=== PATIENT | male | born 1975 | race Caucasian/White ===

== ENCOUNTER 2019-07-18 10:45 | Inpatient (IN) | payer MEDICAID ==
[~2019-07-18] VITALS: Ht 177.8 cm; Wt 132.0 kg
[2019-07-18 12:31] LABS: BASOPHILS % (AUTO) 0.5 % (0-1); EOSINOPHILS # (AUTO) 0.1 X10'3 (0-0.9); EOSINOPHILS % (AUTO) 1.2 % (0-6); HEMATOCRIT 38.5 % (42.0-52.0); HEMOGLOBIN 13.1 g/dl (14.0-17.9); LYMPHOCYTES # (AUTO) 1.3 X10'3 (1.1-4.8); LYMPHOCYTES % (AUTO) 13.5 % (21-51); MEAN CORPUSCULAR VOLUME 88.2 FL (78-98); MEAN PLATELET VOLUME 8.3 FL (7.4-10.4); MONOCYTES # (AUTO) 0.6 X10'3 (0-0.9); MONOCYTES % (AUTO) 6.2 % (2-12); NEUTROPHILS # (AUTO) 7.8 X10'3 (1.8-7.7); NEUTROPHILS % (AUTO) 78.6 % (42-75); PLATELET COUNT 262 X10'3 (140-440); RED BLOOD COUNT 4.36 X10'6 (4.70-6.10); RED CELL DISTRIBUTION WIDTH 16.4 % (11.5-14.5); WHITE BLOOD COUNT 9.9 X10'3 (4.5-11.0)
[2019-07-18 12:48] LABS: ALANINE AMINOTRANSFERASE 27 U/L (12-78); ALBUMIN 3.5 G/DL (3.4-5.0); ALBUMIN/GLOBULIN RATIO 0.9 (1.1-1.5); ALKALINE PHOSPHATASE 92 IU/L (46-116); ANION GAP 10 (8-16); ASPARTATE AMINO TRANSFERASE 20 U/L (10-37); BILIRUBIN,TOTAL 0.6 MG/DL (0.1-1.0); BLOOD UREA NITROGEN 27 MG/DL (7-18); BUN/CREATININE RATIO 19.6 (5.4-32.0); CHLORIDE 104 MMOL/L (99-107); CREATININE 1.38 MG/DL (0.60-1.10); GLUCOSE 112 MG/DL (70-104); SODIUM 140 MMOL/L (135-145); TOTAL CARBON DIOXIDE 26.5 MMOL/L (24-32); TOTAL PROTEIN 7.5 G/DL (6.4-8.2); eGFR 56 ML/MIN
[2019-07-18] MEDS ORDERED: furosemide 10 MG/1 ML 10ml inj IV ONE (13:05)
[2019-07-18] MEDS ORDERED: nitroGLYCERIN-Tridil 50MG/D5W 250 ML IV SCH ×3 (13:05→22:55)
[2019-07-18] MEDS ORDERED: lisinopril 10 MG tablet PO ONE (13:05)
[2019-07-18] MEDS ORDERED: METO50TA7 PO (14:09)
[2019-07-18] MEDS ORDERED: SPIR25TA5 PO (14:09)
[2019-07-18] MEDS ORDERED: LISI-600 PO (14:09)
[2019-07-18] MEDS ORDERED: ASPI-611 PO (14:09)
[2019-07-18] MEDS ORDERED: AMLO10TA PO (14:09)
[2019-07-18] MEDS ORDERED: ATOR40TA PO (14:09)
[2019-07-18] MEDS ORDERED: FURO-150 PO (14:09)
[2019-07-18] MEDS ORDERED: ondansetron/PF 4mg/2ml inj IV PRN (14:10)
[2019-07-18] MEDS ORDERED: potassium CL 10mEq/100ml bag 100 ML IV PRN ×2 (14:10)
[2019-07-18] MEDS ORDERED: magnesium 4gm in 100ml NS 100 ML IV PRN (14:10)
[2019-07-18] MEDS ORDERED: magnesium 2GM in 50ml NS 50 ML IV PRN (14:10)
[2019-07-18] MEDS ORDERED: magnesium Cl slow-release 64mg tablet PO PRN (14:10)
[2019-07-18] MEDS ORDERED: potassium Cl 20 mEq SR tablet PO PRN (14:10)
[2019-07-18] MEDS ORDERED: LORazepam 2 mg/ml vial IV PRN (14:10)
[2019-07-18] MEDS ORDERED: acetaminophen 325mg tablet PO PRN ×2 (14:10)
--- NOTE | 2019-07-18 15:47 | NUR ---
at this time pt urine output: 2.3 Liters
--- NOTE | 2019-07-18 17:43 | NUR ---
relieving RN for lunch, pt is resting quietly on gurney, aware he is waiting for bed assignment and dinner has been ordered, botany laboratory assistant at bedside, pt is talking full sentences, no resp distress, nitro gtt infusing at 75mcg/min.
[2019-07-18 17:58] LABS: URINE AMPHETAMINE SCREEN POSITIVE (Neg); URINE BARBITUATE SCREEN NEGATIVE (Neg); URINE BENZODIAZEPINES SCREEN NEGATIVE (Neg); URINE CANNABINOID SCREEN NEGATIVE (Neg); URINE COCAINE SCREEN NEGATIVE (Neg); URINE METHADONE SCREEN NEGATIVE (Neg); URINE OPIATE SCREEN NEGATIVE (Neg); URINE PHENCYCLIDINE SCREEN NEGATIVE (Neg)
[2019-07-18] MEDS: K and/or MAG REPLACEMENT MC SCH (20:00)
[2019-07-18] MEDS: spironolactone 25 MG tablet PO SCH (20:00)
[2019-07-18] MEDS: morphine 2 MG/ML inj. syringe IV PRN (20:24)
[2019-07-18] MEDS: furosemide 10 MG/1 ML 10ml inj IV SCH (20:26)
[2019-07-18] MEDS: docusate sod 100mg capsule PO SCH (20:30)
[2019-07-18] MEDS: lisinopril 20mg tablet PO SCH (20:30)
[2019-07-18] MEDS: heparin, porcine 5000 units/ml vial SQ SCH (20:33)
[2019-07-18] MEDS ORDERED: temazepam 15mg capsule PO PRN (21:00)
[2019-07-18] MEDS: albuterol 2.5 MG/3 ML nebule NEB SCH (21:10)
[2019-07-18] MEDS ORDERED: amLODIPine 5mg tablet PO ONE (22:35)
[2019-07-18] MEDS: nitroGLYCERIN-Tridil 50MG/D5W 250 ML IV SCH (23:02)
[2019-07-19] MEDS ORDERED: metoprolol tartrate 1mg/ml inj IV ONE (00:10)
[2019-07-19] MEDS: metoprolol tartrate 25mg tablet PO ONE ×2 (00:15→00:18)
[2019-07-19] MEDS: HYDROcodone/acetaminophen 5mg/325mg tablet PO PRN ×2 (00:31→07:28)
[2019-07-19] MEDS: metoprolol tartrate 50mg tablet PO ONE ×2 (00:53→01:20)
[2019-07-19] MEDS: LORazepam 0.5 MG tablet PO PRN ×2 (01:18→18:04)
[2019-07-19] MEDS: albuterol 2.5 MG/3 ML nebule NEB SCH ×4 (02:30→20:01)
--- NOTE | 2019-07-19 03:18 | NUR ---
PT TRANSFERED TO HOSPITAL BED FOR COMFORT. PT STATED NORCO DECREASED HEADACHE PAIN, AND ATIVAN DECREASED HIS ANXIETY.
--- NOTE | 2019-07-19 05:00 | NUR ---
Patient in room ED 9. I have received report from Colleen CUELLAR and had the opportunity to ask questions and assume patient care.
[2019-07-19 05:32] VITALS: BP 134/96
--- NOTE | 2019-07-19 06:20 | NUR ---
Patient in room PCU 3020N. I have received report from Izaiah CUELLAR and had the opportunity to ask questions and assume patient care.
[2019-07-19 06:33] LABS: BASOPHILS % (AUTO) 0.4 % (0-1); EOSINOPHILS # (AUTO) 0.2 X10'3 (0-0.9); EOSINOPHILS % (AUTO) 2.2 % (0-6); HEMATOCRIT 32.8 % (42.0-52.0); HEMOGLOBIN 11.4 g/dl (14.0-17.9); LYMPHOCYTES # (AUTO) 1.3 X10'3 (1.1-4.8); LYMPHOCYTES % (AUTO) 16.1 % (21-51); MEAN CORPUSCULAR HEMOGLOBIN 30.4 PG (27.0-31.0); MEAN CORPUSCULAR HGB CONC 34.7 g/dL (33.0-36.5); MEAN CORPUSCULAR VOLUME 87.6 FL (78-98); MEAN PLATELET VOLUME 8.5 FL (7.4-10.4); MONOCYTES # (AUTO) 0.7 X10'3 (0-0.9); MONOCYTES % (AUTO) 8.2 % (2-12); NEUTROPHILS % (AUTO) 73.1 % (42-75); PLATELET COUNT 226 X10'3 (140-440); RED BLOOD COUNT 3.74 X10'6 (4.70-6.10); RED CELL DISTRIBUTION WIDTH 16.5 % (11.5-14.5); WHITE BLOOD COUNT 8.3 X10'3 (4.5-11.0)
--- NOTE | 2019-07-19 06:33 | NUR ---
Problems reprioritized. Patient report given, questions answered & plan of care reviewed with Lyubov CUELLAR.
[2019-07-19 06:52] LABS: ALANINE AMINOTRANSFERASE 26 U/L (12-78); ALBUMIN 3.2 G/DL (3.4-5.0); ALBUMIN/GLOBULIN RATIO 0.9 (1.1-1.5); ALKALINE PHOSPHATASE 76 IU/L (46-116); ANION GAP 10 (8-16); ASPARTATE AMINO TRANSFERASE 18 U/L (10-37); BLOOD UREA NITROGEN 28 MG/DL (7-18); BUN/CREATININE RATIO 17.5 (5.4-32.0); CALCIUM 8.6 MG/DL (8.5-10.1); CHLORIDE 101 MMOL/L (99-107); CHOL/HDL RATIO 4.8 (0.00-4.99); CHOLESTEROL 135 MG/DL (0-200); GLUCOSE 99 MG/DL (70-104); HDL CHOLESTEROL 28 MG/DL (35-60); LDL CHOLESTEROL 95 MG/DL (50-100); MAGNESIUM 1.7 MG/DL (1.5-2.4); POTASSIUM 3.3 MMOL/L (3.5-5.1); SODIUM 138 MMOL/L (135-145); TOTAL CARBON DIOXIDE 27.3 MMOL/L (24-32); TOTAL PROTEIN 6.6 G/DL (6.4-8.2); TRIGLYCERIDES 140 MG/DL (20-135); eGFR 47 ML/MIN
[2019-07-19 07:00] VITALS: BP 130/91
[2019-07-19] MEDS: nitroGLYCERIN-Tridil 50MG/D5W 250 ML IV SCH (07:30)
[2019-07-19] MEDS: nicotine 14mg patch - 24hr TD SCH (08:15)
[2019-07-19] MEDS: lisinopril 20mg tablet PO SCH ×2 (08:16→20:06)
[2019-07-19] MEDS: potassium Cl 20 mEq SR tablet PO PRN ×3 (08:16→20:09)
[2019-07-19] MEDS: heparin, porcine 5000 units/ml vial SQ SCH ×2 (08:17→20:04)
[2019-07-19] MEDS: docusate sod 100mg capsule PO SCH ×2 (08:17→20:06)
[2019-07-19] MEDS: furosemide 10 MG/1 ML 10ml inj IV SCH ×2 (08:17→20:03)
[2019-07-19] MEDS: atorvastatin 20mg tablet PO SCH (08:17)
[2019-07-19] MEDS: metoprolol succinate 25mg (24-HOUR) SR. Tablet PO SCH (08:18)
[2019-07-19] MEDS: amLODIPine 5mg tablet PO SCH (08:18)
[2019-07-19] MEDS: spironolactone 25 MG tablet PO SCH ×2 (08:18→20:06)
[2019-07-19] MEDS: aspirin 81mg tablet.DR PO SCH (08:18)
[2019-07-19] MEDS: K and/or MAG REPLACEMENT MC SCH ×2 (08:18→20:10)
[2019-07-19 11:00] VITALS: BP 123/81
[2019-07-19] MEDS: morphine 2 MG/ML inj. syringe IV PRN (12:16)
--- NOTE | 2019-07-19 13:01 | NUR ---
Paged Dr Solares regarding Nitro gtt rate. PAGER ID: [phone] MESSAGE: Lyubov moffett [phone]. RE Precious Smith [id number]. Pt has been having constant headache -Nitro gtt still running at 30 mcg. BP's stable all day, last BP 123/81. Would you like a new order with decreased nitro rate or keep as is? Thank you! New orders from Dr Solares to D/C Nitro gtt
[2019-07-19 15:00] VITALS: BP 128/75
--- NOTE | 2019-07-19 18:30 | NUR ---
Patient in room PCU 3025. I have received report from Lyubov CUELLAR and had the opportunity to ask questions and assume patient care.
--- NOTE | 2019-07-19 18:33 | NUR ---
Problems reprioritized. Patient report given, questions answered & plan of care reviewed with Izaiah CUELLAR. Pt stable at time of shift change
--- NOTE | 2019-07-19 18:45 | NUR ---
Pt sitting on edge of bed with visitor at bedside, in no apparent distress. Pt alert and oriented, on room air, lungs clear, bowel sounds present, 20g IV SL in right AC. Plan of care reviewed and questions answered, will monitor pt and provide intervention according to physician orders and protocol. Addendum: 07/20/19 at 0036 by Nader Person RN Pt resting in bed
[2019-07-19 19:00] VITALS: BP 157/99
[2019-07-19 22:33] VITALS: BP 153/104
[2019-07-20] MEDS: albuterol 2.5 MG/3 ML nebule NEB SCH ×2 (02:03→08:31)
--- NOTE | 2019-07-20 02:15 | NUR ---
Notified Dr. Jenkins pt's BP is 180/[address] pt back on nitroglycerin gtt from Dr. Jenkins
[2019-07-20] MEDS ORDERED: nitroGLYCERIN-Tridil 50MG/D5W 250 ML IV PRN (02:25)
[2019-07-20 03:00] VITALS: BP 160/105
[2019-07-20 05:41] LABS: BASOPHILS % (AUTO) 0.5 % (0-1); EOSINOPHILS # (AUTO) 0.2 X10'3 (0-0.9); EOSINOPHILS % (AUTO) 2.7 % (0-6); HEMATOCRIT 35.5 % (42.0-52.0); HEMOGLOBIN 12.1 g/dl (14.0-17.9); LYMPHOCYTES # (AUTO) 1.6 X10'3 (1.1-4.8); LYMPHOCYTES % (AUTO) 22.6 % (21-51); MEAN CORPUSCULAR HEMOGLOBIN 30.1 PG (27.0-31.0); MEAN CORPUSCULAR HGB CONC 34.1 g/dL (33.0-36.5); MEAN CORPUSCULAR VOLUME 88.4 FL (78-98); MEAN PLATELET VOLUME 8.3 FL (7.4-10.4); MONOCYTES # (AUTO) 0.7 X10'3 (0-0.9); MONOCYTES % (AUTO) 9.9 % (2-12); NEUTROPHILS # (AUTO) 4.6 X10'3 (1.8-7.7); NEUTROPHILS % (AUTO) 64.3 % (42-75); PLATELET COUNT 226 X10'3 (140-440); RED BLOOD COUNT 4.02 X10'6 (4.70-6.10); RED CELL DISTRIBUTION WIDTH 16.4 % (11.5-14.5); WHITE BLOOD COUNT 7.1 X10'3 (4.5-11.0)
[2019-07-20 05:48] LABS: ALANINE AMINOTRANSFERASE 24 U/L (12-78); ALBUMIN 3.4 G/DL (3.4-5.0); ALBUMIN/GLOBULIN RATIO 0.9 (1.1-1.5); ALKALINE PHOSPHATASE 78 IU/L (46-116); ANION GAP 7 (8-16); ASPARTATE AMINO TRANSFERASE 15 U/L (10-37); BILIRUBIN,TOTAL 0.7 MG/DL (0.1-1.0); BLOOD UREA NITROGEN 26 MG/DL (7-18); BUN/CREATININE RATIO 17.1 (5.4-32.0); CALCIUM 8.8 MG/DL (8.5-10.1); CHLORIDE 103 MMOL/L (99-107); CREATININE 1.52 MG/DL (0.60-1.10); GLUCOSE 94 MG/DL (70-104); MAGNESIUM 1.9 MG/DL (1.5-2.4); POTASSIUM 3.5 MMOL/L (3.5-5.1); SODIUM 141 MMOL/L (135-145); TOTAL CARBON DIOXIDE 31.2 MMOL/L (24-32); TOTAL PROTEIN 7.1 G/DL (6.4-8.2); eGFR 50 ML/MIN
--- NOTE | 2019-07-20 06:24 | NUR ---
Problems reprioritized. Patient report given, questions answered & plan of care reviewed with Lyubov CUELLAR.
[2019-07-20 06:30] VITALS: BP 131/91
--- NOTE | 2019-07-20 06:31 | NUR ---
Patient in room PCU 3017B. I have received report from Izaiah CUELLAR and had the opportunity to ask questions and assume patient care.
[2019-07-20] MEDS: spironolactone 25 MG tablet PO SCH (07:25)
[2019-07-20] MEDS: docusate sod 100mg capsule PO SCH (07:25)
[2019-07-20] MEDS: aspirin 81mg tablet.DR PO SCH (07:25)
[2019-07-20 07:26] VITALS: BP_SYST 138
[2019-07-20] MEDS: atorvastatin 20mg tablet PO SCH (07:26)
[2019-07-20] MEDS: lisinopril 20mg tablet PO SCH (07:26)
[2019-07-20] MEDS: nicotine 14mg patch - 24hr TD SCH (07:26)
[2019-07-20] MEDS: amLODIPine 5mg tablet PO SCH (07:26)
[2019-07-20] MEDS: metoprolol succinate 25mg (24-HOUR) SR. Tablet PO SCH (07:26)
[2019-07-20] MEDS: heparin, porcine 5000 units/ml vial SQ SCH (07:27)
[2019-07-20] MEDS: furosemide 10 MG/1 ML 10ml inj IV SCH (07:27)
[2019-07-20] MEDS: K and/or MAG REPLACEMENT MC SCH (07:54)
[2019-07-20] MEDS ORDERED: FURO-150 PO (11:36)
[2019-07-20] MEDS ORDERED: ALBU8.5H8 INH (11:36)
--- NOTE | 2019-07-20 13:27 | NUR ---
Per MD, patient stable for discharge. Discharge packet completed and provided to patient, all questions answered. Called new prescriptions into [facility] in [place]. Pt has followup appt in July with Mina Marie DYNO TECHNICIAN. IV removed with catheter intact, patient disconnected from bedside mobile. Patient escorted from hospital via wheelchair accompanied by staff, and driven home by friend via private vehicle.
== END 2019-07-20 13:27 | disposition home or self-care (01) | DRG 194 ==
LOC: ER 10:46 → ED HOLD 14:10 → MED 3N 19:00 → PCU 3S 07-19 05:15
PROVIDERS: ADMIT Internal Medicine; ATTEND Family Medicine
DX: I13.0 Hypertensive heart and chronic kidney disease with heart failure and stage 1 through stage 4 chronic kidney disease, or unspecified chronic kidney disease (principal); I21.A1 Myocardial infarction type 2; N18.3 Chronic kidney disease, stage 3 (moderate); E66.9 Obesity, unspecified; I50.23 Acute on chronic systolic (congestive) heart failure; F10.10 Alcohol abuse, uncomplicated; F17.220 Nicotine dependence, chewing tobacco, uncomplicated; E87.6 Hypokalemia; F15.10 Other stimulant abuse, uncomplicated; F41.9 Anxiety disorder, unspecified; I25.10 Atherosclerotic heart disease of native coronary artery without angina pectoris; Z86.79 Personal history of other diseases of the circulatory system; Z91.14 Patient's other noncompliance with medication regimen; Z91.19 Patient's noncompliance with other medical treatment and regimen; Z68.41 Body mass index [BMI] 40.0-44.9, adult; Z71.6 Tobacco abuse counseling; Z71.51 Drug abuse counseling and surveillance of drug abuser
CPT/HCPCS: 36415; 71046; 80053; 80061; 80305; 83735; 84484; 85025; 87081; 93005; 93306; 94640; 94760; 96365; 96375; 97116; 97161; 97530; 99285; G0378; J1644; J1940; J2060; J2270; J3490

== ENCOUNTER 2021-06-05 07:46 | Inpatient (IN) | payer MEDICAID ==
[~2021-06-05] VITALS: Ht 175.3 cm; Wt 152.1 kg
[~2021-06-05 07:46] MED LIST: ALBU8.5H17 INH; AMLO10TA PO; ASPI-611 PO; ATOR40TA PO; LISI20TA28 PO; METO50TA7 PO; SPIR25TA5 PO
[2021-06-05] MEDS ORDERED: diltiazem 5mg/ml 5ml inj. IV ONE (08:35)
[2021-06-05] MEDS ORDERED: aspirin 81mg tab.chew PO ONE (08:35)
[2021-06-05] MEDS ORDERED: diltiazem-NS 100mg/100ml 100 ML IV ONE (08:35)
[2021-06-05 08:57] LABS: BASOPHILS % (AUTO) 0.4 % (0-1); EOSINOPHILS # (AUTO) 0.1 X10'3 (0-0.9); EOSINOPHILS % (AUTO) 0.9 % (0-6); HEMATOCRIT 34.2 % (42.0-52.0); HEMOGLOBIN 11.6 g/dl (14.0-17.9); LYMPHOCYTES # (AUTO) 1.3 X10'3 (1.1-4.8); LYMPHOCYTES % (AUTO) 11.7 % (21-51); MEAN CORPUSCULAR HEMOGLOBIN 29.9 PG (27.0-31.0); MEAN PLATELET VOLUME 8.5 FL (7.4-10.4); MONOCYTES # (AUTO) 0.8 X10'3 (0-0.9); MONOCYTES % (AUTO) 7.4 % (2-12); NEUTROPHILS # (AUTO) 8.7 X10'3 (1.8-7.7); NEUTROPHILS % (AUTO) 79.6 % (42-75); PLATELET COUNT 349 X10'3 (140-440); RED BLOOD COUNT 3.88 X10'6 (4.70-6.10); RED CELL DISTRIBUTION WIDTH 14.6 % (11.5-14.5); WHITE BLOOD COUNT 10.9 X10'3 (4.5-11.0)
[2021-06-05 09:06] LABS: D-DIMER 1.39 MG/L FEU (0-0.50)
[2021-06-05 09:07] LABS: ALANINE AMINOTRANSFERASE 34 U/L (12-78); ALBUMIN 3.4 G/DL (3.4-5.0); ALBUMIN/GLOBULIN RATIO 0.8 (1.1-1.5); ALKALINE PHOSPHATASE 42 IU/L (46-116); ANION GAP 14 (8-16); ASPARTATE AMINO TRANSFERASE 26 U/L (10-37); BILIRUBIN,TOTAL 0.3 MG/DL (0.1-1.0); BLOOD UREA NITROGEN 43 MG/DL (7-18); BUN/CREATININE RATIO 21.3 (5.4-32.0); CALCIUM 8.8 MG/DL (8.5-10.1); CHLORIDE 105 MMOL/L (99-107); CREATININE 2.02 MG/DL (0.60-1.10); GLUCOSE 137 MG/DL (70-104); POTASSIUM 4.1 MMOL/L (3.5-5.1); SODIUM 140 MMOL/L (135-145); TOTAL CARBON DIOXIDE 21.4 MMOL/L (24-32); TOTAL PROTEIN 7.6 G/DL (6.4-8.2); eGFR 36 ML/MIN
[2021-06-05 09:15] LABS: MAGNESIUM 2.1 MG/DL (1.5-2.4)
[2021-06-05] MEDS ORDERED: furosemide 10 MG/1 ML 10ml inj IV ONE (09:55)
[2021-06-05] MEDS ORDERED: morphine 4 MG/ML inj SYRINge IV ONE (11:10)
[2021-06-05] MEDS ORDERED: ondansetron/PF 4mg/2ml inj IV PRN (11:20)
[2021-06-05] MEDS ORDERED: acetaminophen 325mg tablet PO PRN ×2 (11:20)
[2021-06-05] MEDS ORDERED: magnesium hydroxide 30ml (MOM) UD suspension PO PRN (11:20)
[2021-06-05] MEDS ORDERED: mag hydrox/Alum hydrox/simeth 30ml oral suspension PO PRN (11:20)
[2021-06-05] MEDS ORDERED: LISI5TAB22 PO (11:30)
[2021-06-05] MEDS ORDERED: ALLO100T PO (11:30)
[2021-06-05] MEDS ORDERED: METO-395 PO (11:30)
[2021-06-05] MEDS ORDERED: FURO40TA4 PO (11:30)
[2021-06-05] MEDS ORDERED: ASPI-1397 PO (11:30)
[2021-06-05] MEDS ORDERED: ERGO500054 PO (11:30)
[2021-06-05] MEDS ORDERED: FENO145T25 PO (11:30)
[2021-06-05] MEDS ORDERED: NIFE-34 PO (11:30)
[2021-06-05] MEDS ORDERED: APIX5TAB3 PO (11:30)
[2021-06-05 11:51] LABS: HEMOGLOBIN A1C 6.5 % (4.5-6.2)
--- NOTE | 2021-06-05 13:00 | NUR ---
DR PALM PAGED FOR MEDICATION CLARIFICATION.
--- NOTE | 2021-06-05 15:00 | NUR ---
DR PALM REPGED FOR MEDICATION CLARIFICTION, NO RETURN CALL
[2021-06-05] MEDS: morphine 2 MG/ML inj. syringe IV PRN ×3 (16:23→23:44)
--- NOTE | 2021-06-05 16:30 | NUR ---
DR PALM REPAGED FOR MED CLARIFICATION, NO RETURN CALL
--- NOTE | 2021-06-05 17:30 | NUR ---
DR PALM PAGED FOR MED RECONCILIATION COMPLETION. NO RETURN CALL
[2021-06-05] MEDS: docusate sod 100mg capsule PO SCH (20:30)
[2021-06-05] MEDS: apixaban 5mg tablet PO SCH (20:30)
[2021-06-05] MEDS: furosemide 40mg/4ml inj IV SCH (20:30)
--- NOTE | 2021-06-05 20:52 | NUR ---
DR SHEPHERD PG'ED RE CONTINUED TACHYCARDIA
[2021-06-05] MEDS ORDERED: digoxin 250mcg/ml 2ml ampule IV ONE (21:15)
[2021-06-05 22:00] VITALS: BP 167/109
[2021-06-06] VITALS (7 sets, daily range): BP systolic 116–177; BP diastolic 41–117
[2021-06-06] MEDS: morphine 2 MG/ML inj. syringe IV PRN ×3 (03:54→21:00)
--- NOTE | 2021-06-06 06:26 | NUR ---
Patient in room U 3018. I have received report from POLO CASAS traveler and had the opportunity to ask questions and assume patient care.
--- NOTE | 2021-06-06 06:26 | NUR ---
Patient in room PCU 3018. I have received report from Brooke RN Traveler PCU and had the opportunity to ask questions and assume patient care.
[2021-06-06 06:54] LABS: BASOPHILS # (AUTO) 0.1 X10'3 (0-0.2); BASOPHILS % (AUTO) 0.7 % (0-1); EOSINOPHILS # (AUTO) 0.2 X10'3 (0-0.9); EOSINOPHILS % (AUTO) 2.9 % (0-6); HEMATOCRIT 31.7 % (42.0-52.0); HEMOGLOBIN 10.9 g/dl (14.0-17.9); LYMPHOCYTES # (AUTO) 1.3 X10'3 (1.1-4.8); LYMPHOCYTES % (AUTO) 16.3 % (21-51); MEAN CORPUSCULAR HEMOGLOBIN 30.2 PG (27.0-31.0); MEAN CORPUSCULAR HGB CONC 34.5 g/dL (33.0-36.5); MEAN CORPUSCULAR VOLUME 87.6 FL (78-98); MEAN PLATELET VOLUME 8.1 FL (7.4-10.4); MONOCYTES # (AUTO) 0.5 X10'3 (0-0.9); MONOCYTES % (AUTO) 6.8 % (2-12); NEUTROPHILS # (AUTO) 5.6 X10'3 (1.8-7.7); NEUTROPHILS % (AUTO) 73.3 % (42-75); PLATELET COUNT 295 X10'3 (140-440); RED BLOOD COUNT 3.62 X10'6 (4.70-6.10); RED CELL DISTRIBUTION WIDTH 14.3 % (11.5-14.5); WHITE BLOOD COUNT 7.7 X10'3 (4.5-11.0)
--- NOTE | 2021-06-06 07:44 | NUR ---
PAGER ID: [phone] MESSAGE: Karan Smith#[phone]- Good morning, pt's BP this am HR108, RR22, 95% RA, 177/117. Hm meds have not been reconcile, can we get anti-HTN meds on board plz. Thank you. Tamar Chase U
[2021-06-06] MEDS ORDERED: albuterol 2.5 MG/3 ML nebule NEB PRN (07:50)
[2021-06-06 07:57] LABS: ALBUMIN 3.2 G/DL (3.4-5.0); ANION GAP 12 (8-16); BLOOD UREA NITROGEN 48 MG/DL (7-18); BUN/CREATININE RATIO 20.5 (5.4-32.0); CALCIUM 8.5 MG/DL (8.5-10.1); CHLORIDE 103 MMOL/L (99-107); CREATININE 2.34 MG/DL (0.60-1.10); GLUCOSE 124 MG/DL (70-104); POTASSIUM 3.5 MMOL/L (3.5-5.1); SODIUM 142 MMOL/L (135-145); TOTAL CARBON DIOXIDE 27.5 MMOL/L (24-32); eGFR 30 ML/MIN
[2021-06-06] MEDS: furosemide 40mg/4ml inj IV SCH ×2 (07:59→19:04)
[2021-06-06] MEDS: aspirin 81mg, enteric-coated 1 TAB TABLET.DR PO SCH (07:59)
[2021-06-06] MEDS: apixaban 5mg tablet PO SCH ×2 (07:59→19:05)
[2021-06-06] MEDS: docusate sod 100mg capsule PO SCH ×2 (07:59→19:05)
[2021-06-06] MEDS ORDERED: apixaban 5mg tablet PO SCH (08:00)
[2021-06-06] MEDS: fenofibrate 145mg tablet PO SCH (08:00)
[2021-06-06] MEDS: metoprolol succinate 25mg (24-HOUR) SR. Tablet PO SCH ×2 (08:00→19:06)
[2021-06-06] MEDS: lisinopril 5mg tablet PO SCH (08:01)
[2021-06-06] MEDS: allopurinol 100mg tablet PO SCH (08:01)
[2021-06-06] MEDS: HYDROcodone/acetaminophen 5mg/325mg tablet PO PRN ×2 (11:34→19:04)
--- NOTE | 2021-06-06 12:35 | NUR ---
Student documentation: I have reviewed and agree with all interventions, assessments performed and documented by Flori Martinez [employer] student..
--- NOTE | 2021-06-06 18:31 | NUR ---
Problems reprioritized. Patient report given, questions answered & plan of care reviewed with AUGUSTO RN.
--- NOTE | 2021-06-06 18:31 | NUR ---
Problems reprioritized. Patient report given, questions answered & plan of care reviewed with Brooke RN Traveler PCU.
[2021-06-07] MEDS ORDERED: temazepam 15mg capsule PO ONE (00:10)
[2021-06-07 02:00] VITALS: BP 143/90
[2021-06-07] MEDS: morphine 2 MG/ML inj. syringe IV PRN ×4 (05:53→23:14)
--- NOTE | 2021-06-07 06:42 | NUR ---
Patient in room PCU 3018. I have received report from POLO Cox and had the opportunity to ask questions and assume patient care.
[2021-06-07 06:48] LABS: BASOPHILS # (AUTO) 0.1 X10'3 (0-0.2); BASOPHILS % (AUTO) 0.9 % (0-1); EOSINOPHILS # (AUTO) 0.4 X10'3 (0-0.9); EOSINOPHILS % (AUTO) 4.9 % (0-6); HEMATOCRIT 31.7 % (42.0-52.0); HEMOGLOBIN 10.8 g/dl (14.0-17.9); LYMPHOCYTES # (AUTO) 1.2 X10'3 (1.1-4.8); LYMPHOCYTES % (AUTO) 16.1 % (21-51); MEAN CORPUSCULAR HEMOGLOBIN 29.9 PG (27.0-31.0); MEAN CORPUSCULAR HGB CONC 34.1 g/dL (33.0-36.5); MEAN CORPUSCULAR VOLUME 87.8 FL (78-98); MONOCYTES # (AUTO) 0.6 X10'3 (0-0.9); MONOCYTES % (AUTO) 8.2 % (2-12); NEUTROPHILS # (AUTO) 5.4 X10'3 (1.8-7.7); NEUTROPHILS % (AUTO) 69.9 % (42-75); PLATELET COUNT 292 X10'3 (140-440); RED BLOOD COUNT 3.61 X10'6 (4.70-6.10); WHITE BLOOD COUNT 7.7 X10'3 (4.5-11.0)
[2021-06-07 07:00] VITALS: BP 143/92
[2021-06-07 07:36] LABS: ANION GAP 9 (8-16); BLOOD UREA NITROGEN 49 MG/DL (7-18); BUN/CREATININE RATIO 23.7 (5.4-32.0); CALCIUM 8.3 MG/DL (8.5-10.1); CHLORIDE 102 MMOL/L (99-107); CREATININE 2.07 MG/DL (0.60-1.10); GLUCOSE 112 MG/DL (70-104); POTASSIUM 3.5 MMOL/L (3.5-5.1); SODIUM 139 MMOL/L (135-145); TOTAL CARBON DIOXIDE 28.5 MMOL/L (24-32); eGFR 35 ML/MIN
[2021-06-07] MEDS: docusate sod 100mg capsule PO SCH ×2 (08:36→19:56)
[2021-06-07] MEDS: metoprolol succinate 25mg (24-HOUR) SR. Tablet PO SCH ×2 (08:36→19:55)
[2021-06-07] MEDS: apixaban 5mg tablet PO SCH ×2 (08:36→19:55)
[2021-06-07] MEDS: furosemide 40mg/4ml inj IV SCH ×2 (08:36→19:55)
[2021-06-07] MEDS: fenofibrate 145mg tablet PO SCH (08:36)
[2021-06-07] MEDS: allopurinol 100mg tablet PO SCH (08:37)
[2021-06-07] MEDS: aspirin 81mg, enteric-coated 1 TAB TABLET.DR PO SCH (08:37)
[2021-06-07] MEDS: lisinopril 5mg tablet PO SCH (08:37)
[2021-06-07 11:00] VITALS: BP 158/88
[2021-06-07 15:00] VITALS: BP 138/92
[2021-06-07 18:00] VITALS: BP 157/93
--- NOTE | 2021-06-07 18:47 | NUR ---
Problems reprioritized. Patient report given, questions answered & plan of care reviewed with POLO Sanches. Pt sitting up in bed resting comfortably. All pt needs met at this time.
[2021-06-07 22:00] VITALS: BP 159/105
--- NOTE | 2021-06-07 22:21 | NUR ---
[phone] MESSAGE: re: [id number] Karan Smith - requesting sleep aid. Verónica [phone]
[2021-06-08 02:00] VITALS: BP 128/74
[2021-06-08] MEDS: morphine 2 MG/ML inj. syringe IV PRN ×2 (05:52→10:41)
[2021-06-08 06:10] LABS: BASOPHILS % (AUTO) 0.6 % (0-1); EOSINOPHILS # (AUTO) 0.3 X10'3 (0-0.9); EOSINOPHILS % (AUTO) 4.3 % (0-6); HEMATOCRIT 33.8 % (42.0-52.0); HEMOGLOBIN 11.2 g/dl (14.0-17.9); LYMPHOCYTES # (AUTO) 1.1 X10'3 (1.1-4.8); LYMPHOCYTES % (AUTO) 14.5 % (21-51); MEAN CORPUSCULAR HEMOGLOBIN 29.2 PG (27.0-31.0); MEAN CORPUSCULAR HGB CONC 33.2 g/dL (33.0-36.5); MONOCYTES # (AUTO) 0.7 X10'3 (0-0.9); MONOCYTES % (AUTO) 8.6 % (2-12); NEUTROPHILS # (AUTO) 5.5 X10'3 (1.8-7.7); PLATELET COUNT 320 X10'3 (140-440); RED BLOOD COUNT 3.85 X10'6 (4.70-6.10); RED CELL DISTRIBUTION WIDTH 14.4 % (11.5-14.5); WHITE BLOOD COUNT 7.7 X10'3 (4.5-11.0)
--- NOTE | 2021-06-08 06:13 | NUR ---
Problems reprioritized. Patient report given, questions answered & plan of care reviewed with POLO Wilcox.
[2021-06-08 06:21] LABS: ALBUMIN 3.1 G/DL (3.4-5.0); ANION GAP 9 (8-16); BLOOD UREA NITROGEN 52 MG/DL (7-18); BUN/CREATININE RATIO 26.4 (5.4-32.0); CALCIUM 8.6 MG/DL (8.5-10.1); CHLORIDE 103 MMOL/L (99-107); CREATININE 1.97 MG/DL (0.60-1.10); GLUCOSE 112 MG/DL (70-104); POTASSIUM 3.7 MMOL/L (3.5-5.1); SODIUM 140 MMOL/L (135-145); eGFR 37 ML/MIN
--- NOTE | 2021-06-08 06:25 | NUR ---
Patient in room PCU 3018. I have received report from POLO Sanches and had the opportunity to ask questions and assume patient care.
[2021-06-08 07:24] VITALS: BP 151/94
[2021-06-08] MEDS: allopurinol 100mg tablet PO SCH (08:33)
[2021-06-08] MEDS: furosemide 40mg/4ml inj IV SCH (08:33)
[2021-06-08] MEDS: apixaban 5mg tablet PO SCH (08:33)
[2021-06-08] MEDS: lisinopril 5mg tablet PO SCH (08:33)
[2021-06-08] MEDS: metoprolol succinate 25mg (24-HOUR) SR. Tablet PO SCH (08:33)
[2021-06-08] MEDS: fenofibrate 145mg tablet PO SCH (08:33)
[2021-06-08] MEDS: aspirin 81mg, enteric-coated 1 TAB TABLET.DR PO SCH (08:33)
[2021-06-08] MEDS: docusate sod 100mg capsule PO SCH (08:34)
--- NOTE | 2021-06-08 10:02 | NUR ---
Initial: Pt presented with c/o SOB and admit for CHF and A.fib with RVR. Currently on a heart healthy diet and eating well with 100% PO intake throughout LOS. D/w dietary to send double protein with meals for satiety. LBM 06/05, receiving routine bowel care and received first dose of PRN MoM 06/07. Will continue to follow and monitor need for further nutrition intervention. Recommendations: 1) Continue heart healthy diet 2) Double eggs WB, double meat BIDLD for satiety 3) Routine bowel care 4) Weekly scaled weights Addendum: 06/08/21 at [address] Amended: Links added.
[2021-06-08 11:00] VITALS: BP 135/88
--- NOTE | 2021-06-08 13:00 | NUR ---
Patient stable for discharge per md orders. All instructions were given, questions were answered appropriately. All belongings were collected and sent with pt. PIV discontinued, cannula intact. Tele discontinued, television news producer notified. Informed pt to take medications as prescribed, and follow with with PCP within one week. Encouraged pt to follow heart healthy diet. Wheeled pt to lobby and assisted into personal vehicle with son.
== END 2021-06-08 13:00 | disposition home or self-care (01) | DRG 201 ==
LOC: ER 07:47 → ED HOLD 11:23 → PCU 3S 22:10
PROVIDERS: ADMIT Internal Medicine; ATTEND Family Medicine
PROC: CB121ZZ Planar Nuclear Medicine Imaging of Lungs and Bronchi using Technetium 99m (Tc-99m) (ICD-10-PCS; principal; 2021-06-08)
DX: I48.0 Paroxysmal atrial fibrillation (principal); N17.0 Acute kidney failure with tubular necrosis; I50.23 Acute on chronic systolic (congestive) heart failure; I13.0 Hypertensive heart and chronic kidney disease with heart failure and stage 1 through stage 4 chronic kidney disease, or unspecified chronic kidney disease; D64.9 Anemia, unspecified; E66.01 Morbid (severe) obesity due to excess calories; E78.1 Pure hyperglyceridemia; Z60.2 Problems related to living alone; G47.33 Obstructive sleep apnea (adult) (pediatric); E78.5 Hyperlipidemia, unspecified; I25.10 Atherosclerotic heart disease of native coronary artery without angina pectoris; N18.9 Chronic kidney disease, unspecified; Z68.42 Body mass index [BMI] 45.0-49.9, adult; Z82.49 Family history of ischemic heart disease and other diseases of the circulatory system; I25.2 Old myocardial infarction; Z87.891 Personal history of nicotine dependence; Z79.899 Other long term (current) drug therapy; Z71.3 Dietary counseling and surveillance
CPT/HCPCS: 36415; 71045; 78582; 80048; 80053; 83036; 83735; 83880; 84484; 85025; 85379; 87081; 93005; 93306; 96374; 96375; 99291; A9539; A9540; G0378; J1160; J1940; J2270; J3490

== ENCOUNTER 2021-07-31 07:54 | Inpatient (IN) | payer MEDICAID ==
[~2021-07-31] VITALS: Ht 175.3 cm; Wt 163.9 kg
[~2021-07-31 07:54] MED LIST changes: -ALBU8.5H17 INH; +ALLO100T PO; -AMLO10TA PO; +APIX5TAB3 PO; +ASPI-1397 PO; -ASPI-611 PO; -ATOR40TA PO; +ERGO500054 PO; +FENO145T25 PO; +FURO40TA4 PO; -LISI20TA28 PO; +LISI5TAB22 PO; +METO-395 PO; -METO50TA7 PO; -SPIR25TA5 PO
[2021-07-31 08:25] LABS: BASOPHILS # (AUTO) 0.1 X10'3 (0-0.2); EOSINOPHILS # (AUTO) 0.1 X10'3 (0-0.9); EOSINOPHILS % (AUTO) 1.3 % (0-6); HEMATOCRIT 40.6 % (42.0-52.0); HEMOGLOBIN 13.3 g/dl (14.0-17.9); LYMPHOCYTES # (AUTO) 1.2 X10'3 (1.1-4.8); LYMPHOCYTES % (AUTO) 18.9 % (21-51); MEAN CORPUSCULAR HEMOGLOBIN 28.2 PG (27.0-31.0); MEAN CORPUSCULAR HGB CONC 32.7 g/dL (33.0-36.5); MEAN CORPUSCULAR VOLUME 86.2 FL (78-98); MEAN PLATELET VOLUME 7.6 FL (7.4-10.4); MONOCYTES # (AUTO) 0.3 X10'3 (0-0.9); MONOCYTES % (AUTO) 5.1 % (2-12); NEUTROPHILS # (AUTO) 4.6 X10'3 (1.8-7.7); NEUTROPHILS % (AUTO) 73.7 % (42-75); PLATELET COUNT 239 X10'3 (140-440); RED BLOOD COUNT 4.71 X10'6 (4.70-6.10); RED CELL DISTRIBUTION WIDTH 16.6 % (11.5-14.5); WHITE BLOOD COUNT 6.2 X10'3 (4.5-11.0)
[2021-07-31 08:48] LABS: ALANINE AMINOTRANSFERASE 28 U/L (12-78); ALBUMIN 3.4 G/DL (3.4-5.0); ALBUMIN/GLOBULIN RATIO 0.9 (1.1-1.5); ALKALINE PHOSPHATASE 47 IU/L (46-116); ANION GAP 11 (8-16); ASPARTATE AMINO TRANSFERASE 26 U/L (10-37); BILIRUBIN,TOTAL 0.3 MG/DL (0.1-1.0); BLOOD UREA NITROGEN 42 MG/DL (7-18); BUN/CREATININE RATIO 18.9 (5.4-32.0); CALCIUM 9.2 MG/DL (8.5-10.1); CHLORIDE 105 MMOL/L (99-107); CREATININE 2.22 MG/DL (0.60-1.10); GLUCOSE 174 MG/DL (70-104); POTASSIUM 4.7 MMOL/L (3.5-5.1); SODIUM 141 MMOL/L (135-145); TOTAL CARBON DIOXIDE 25.1 MMOL/L (24-32); TOTAL PROTEIN 7.4 G/DL (6.4-8.2); eGFR 32 ML/MIN
--- NOTE | 2021-07-31 09:06 | NUR ---
Pt. continues to wait for a treatment room. States having difficulty staying awake, feeling lightheaded and lethargic. HR 68-102, RR 24, O2 sats 95%, BP 120/75. Encouraged patient to try and slow down breathing. Charge nurse notified.
[2021-07-31] MEDS ORDERED: metoprolol tartrate 50mg tablet PO ONE ×2 (14:25→18:35)
[2021-07-31] MEDS ORDERED: LORazepam 1 MG tablet PO ONE ×2 (14:25→18:35)
[2021-07-31] MEDS ORDERED: metoprolol tartrate 1mg/ml inj IV ONE (14:25)
[2021-07-31] MEDS ORDERED: hyDRALAzine 10mg tablet PO ONE (18:35)
--- NOTE | 2021-07-31 19:08 | NUR ---
MEAL TRAY GIVEN TO PATIENT
[2021-07-31] MEDS ORDERED: LORazepam 2 mg/ml vial IV PRN (20:15)
[2021-07-31] MEDS ORDERED: ondansetron/PF 4mg/2ml inj IV PRN (20:15)
[2021-07-31] MEDS ORDERED: HYDROcodone/acetaminophen 5mg/325mg tablet PO PRN (20:15)
[2021-07-31] MEDS ORDERED: dextrose 50%-water 50ml dispensing syringe IV PRN (20:15)
[2021-07-31] MEDS ORDERED: magnesium 4gm in 100ml NS 100 ML IV PRN (20:15)
[2021-07-31] MEDS ORDERED: ipratropium/albuterol 3ml nebule NEB PRN (20:15)
[2021-07-31] MEDS ORDERED: acetaminophen 325mg tablet PO PRN ×2 (20:15)
[2021-07-31] MEDS ORDERED: magnesium hydroxide 30ml (MOM) UD suspension PO PRN (20:15)
[2021-07-31] MEDS ORDERED: potassium Cl 20 mEq SR tablet PO PRN ×2 (20:15)
[2021-07-31] MEDS ORDERED: mag hydrox/Alum hydrox/simeth 30ml oral suspension PO PRN (20:15)
[2021-07-31] MEDS ORDERED: albuterol 2.5 MG/3 ML nebule NEB PRN (20:15)
[2021-07-31] MEDS ORDERED: potassium CL 10mEq/100ml bag 100 ML IV PRN (20:15)
[2021-07-31] MEDS ORDERED: haloperidol 5mg tablet PO PRN (20:15)
[2021-07-31] MEDS ORDERED: magnesium 2GM in 50ml NS 50 ML IV PRN (20:15)
[2021-07-31] MEDS ORDERED: haloperidol lactate 5mg/ml inj IM PRN (20:15)
[2021-07-31] MEDS ORDERED: SPIR25TA5 PO (20:35)
[2021-07-31] MEDS ORDERED: LISI40TA13 PO (20:35)
[2021-07-31] MEDS ORDERED: AMIO200T61 PO (20:35)
[2021-07-31] MEDS ORDERED: METO200T49 PO (20:35)
[2021-07-31] MEDS ORDERED: HYDR-4069 PO (20:38)
--- NOTE | 2021-07-31 20:57 | NUR ---
Rico rios in ED - 07/31/21 at 2057 by ERASMO pt given and fed dinner tray by [employer] Rhi. pt given 2-3 bites of food and refused dinner tray.
[2021-07-31] MEDS: thiamine 100mg/ml 2ml inj. IV SCH (21:05)
[2021-08-01] MEDS: HYDROcodone/acetaminophen 10/325mg tab PO PRN ×3 (01:18→22:57)
--- NOTE | 2021-08-01 06:54 | NUR ---
patient received in bed asleep.We will monitor.
[2021-08-01 07:45] LABS: BASOPHILS # (AUTO) 0.1 X10'3 (0-0.2); BASOPHILS % (AUTO) 1.3 % (0-1); EOSINOPHILS # (AUTO) 0.1 X10'3 (0-0.9); EOSINOPHILS % (AUTO) 1.7 % (0-6); HEMATOCRIT 38.2 % (42.0-52.0); HEMOGLOBIN 12.6 g/dl (14.0-17.9); LYMPHOCYTES # (AUTO) 1.4 X10'3 (1.1-4.8); LYMPHOCYTES % (AUTO) 24.8 % (21-51); MEAN CORPUSCULAR HEMOGLOBIN 28.4 PG (27.0-31.0); MEAN CORPUSCULAR VOLUME 86.1 FL (78-98); MEAN PLATELET VOLUME 7.7 FL (7.4-10.4); MONOCYTES # (AUTO) 0.6 X10'3 (0-0.9); MONOCYTES % (AUTO) 10.1 % (2-12); NEUTROPHILS # (AUTO) 3.5 X10'3 (1.8-7.7); NEUTROPHILS % (AUTO) 62.1 % (42-75); PLATELET COUNT 201 X10'3 (140-440); RED BLOOD COUNT 4.44 X10'6 (4.70-6.10); WHITE BLOOD COUNT 5.6 X10'3 (4.5-11.0)
[2021-08-01] MEDS ORDERED: apixaban 5mg tablet PO SCH (08:00)
[2021-08-01] MEDS: folic acid 1mg tablet PO SCH (08:00)
[2021-08-01] MEDS: metoprolol succinate 25mg (24-HOUR) SR. Tablet PO SCH (08:00)
[2021-08-01] MEDS: fenofibrate 145mg tablet PO SCH (08:00)
[2021-08-01] MEDS: nicotine 21mg patch - 24 hr TD SCH (08:00)
[2021-08-01] MEDS: thiamine 100mg/ml 2ml inj. IV SCH ×3 (08:00→22:18)
[2021-08-01] MEDS: K and/or MAG REPLACEMENT MC SCH ×2 (08:00→20:00)
[2021-08-01] MEDS: aspirin 81mg, enteric-coated 1 TAB TABLET.DR PO SCH (08:00)
[2021-08-01] MEDS: apixaban 5mg tablet PO SCH ×2 (08:00→22:27)
[2021-08-01] MEDS: docusate sod 100mg capsule PO SCH ×2 (08:00→20:00)
[2021-08-01] MEDS: allopurinol 100mg tablet PO SCH (08:00)
[2021-08-01] MEDS ORDERED: lisinopril 20mg tablet PO SCH (08:00)
[2021-08-01] MEDS: amiodarone 200mg tablet PO SCH (08:00)
[2021-08-01] MEDS: furosemide 40mg/4ml inj IV SCH (08:00)
[2021-08-01] MEDS: spironolactone 25 MG tablet PO SCH ×2 (08:00→22:28)
[2021-08-01] MEDS: hyDRALAzine 10mg tablet PO SCH ×2 (08:00→22:26)
[2021-08-01 08:59] LABS: ALANINE AMINOTRANSFERASE 25 U/L (12-78); ALBUMIN 3.4 G/DL (3.4-5.0); ALBUMIN/GLOBULIN RATIO 0.9 (1.1-1.5); ALKALINE PHOSPHATASE 42 IU/L (46-116); ANION GAP 13 (8-16); ASPARTATE AMINO TRANSFERASE 28 U/L (10-37); BILIRUBIN,TOTAL 0.5 MG/DL (0.1-1.0); BLOOD UREA NITROGEN 46 MG/DL (7-18); BUN/CREATININE RATIO 18.9 (5.4-32.0); CALCIUM 8.8 MG/DL (8.5-10.1); CHLORIDE 103 MMOL/L (99-107); CREATININE 2.44 MG/DL (0.60-1.10); GLUCOSE 119 MG/DL (70-104); MAGNESIUM 1.8 MG/DL (1.5-2.4); PHOSPHORUS 3.3 MG/DL (2.3-4.5); POTASSIUM 4.5 MMOL/L (3.5-5.1); SODIUM 138 MMOL/L (135-145); TOTAL CARBON DIOXIDE 22.5 MMOL/L (24-32); TOTAL PROTEIN 7.2 G/DL (6.4-8.2); eGFR 29 ML/MIN
[2021-08-01] MEDS ORDERED: ondansetron 4mg rapidly disintigrating tab PO PRN (13:50)
--- NOTE | 2021-08-01 18:30 | NUR ---
Patient in room PCU 3015. I have received report from Collette ESTEBAN and had the opportunity to ask questions and assume patient care.
--- NOTE | 2021-08-01 19:05 | NUR ---
assisting RN with pt care, report called to Sarai CUELLAR
[2021-08-01 22:00] VITALS: BP 147/108
[2021-08-01] MEDS: diltiazem 30mg tablet PO SCH (22:19)
[2021-08-02 02:00] VITALS: BP 150/91
[2021-08-02] MEDS: diltiazem 30mg tablet PO SCH ×2 (02:47→08:57)
[2021-08-02] MEDS: HYDROcodone/acetaminophen 10/325mg tab PO PRN (05:53)
[2021-08-02 06:00] VITALS: BP 131/83
--- NOTE | 2021-08-02 06:30 | NUR ---
Patient in room PCU 3015. I have received report from Sarai CUELLAR and had the opportunity to ask questions and assume patient care.
[2021-08-02 07:01] LABS: BASOPHILS # (AUTO) 0.1 X10'3 (0-0.2); BASOPHILS % (AUTO) 1.1 % (0-1); EOSINOPHILS # (AUTO) 0.2 X10'3 (0-0.9); HEMATOCRIT 39.9 % (42.0-52.0); HEMOGLOBIN 13.1 g/dl (14.0-17.9); LYMPHOCYTES # (AUTO) 1.7 X10'3 (1.1-4.8); LYMPHOCYTES % (AUTO) 27.2 % (21-51); MEAN CORPUSCULAR HEMOGLOBIN 28.4 PG (27.0-31.0); MEAN CORPUSCULAR HGB CONC 32.9 g/dL (33.0-36.5); MEAN CORPUSCULAR VOLUME 86.2 FL (78-98); MEAN PLATELET VOLUME 7.9 FL (7.4-10.4); MONOCYTES # (AUTO) 0.5 X10'3 (0-0.9); MONOCYTES % (AUTO) 8.4 % (2-12); NEUTROPHILS # (AUTO) 3.6 X10'3 (1.8-7.7); NEUTROPHILS % (AUTO) 59.3 % (42-75); PLATELET COUNT 217 X10'3 (140-440); RED BLOOD COUNT 4.63 X10'6 (4.70-6.10); RED CELL DISTRIBUTION WIDTH 16.7 % (11.5-14.5); WHITE BLOOD COUNT 6.1 X10'3 (4.5-11.0)
[2021-08-02 07:26] LABS: ALANINE AMINOTRANSFERASE 28 U/L (12-78); ALBUMIN 3.6 G/DL (3.4-5.0); ALBUMIN/GLOBULIN RATIO 0.9 (1.1-1.5); ALKALINE PHOSPHATASE 46 IU/L (46-116); ANION GAP 12 (8-16); ASPARTATE AMINO TRANSFERASE 22 U/L (10-37); BILIRUBIN,TOTAL 0.4 MG/DL (0.1-1.0); BLOOD UREA NITROGEN 53 MG/DL (7-18); BUN/CREATININE RATIO 20.2 (5.4-32.0); CALCIUM 9.1 MG/DL (8.5-10.1); CHLORIDE 101 MMOL/L (99-107); CREATININE 2.63 MG/DL (0.60-1.10); GLUCOSE 112 MG/DL (70-104); MAGNESIUM 1.9 MG/DL (1.5-2.4); POTASSIUM 4.6 MMOL/L (3.5-5.1); SODIUM 136 MMOL/L (135-145); TOTAL CARBON DIOXIDE 22.8 MMOL/L (24-32); TOTAL PROTEIN 7.6 G/DL (6.4-8.2); eGFR 26 ML/MIN
[2021-08-02] MEDS: thiamine 100mg/ml 2ml inj. IV SCH (08:00)
[2021-08-02] MEDS: K and/or MAG REPLACEMENT MC SCH (08:00)
[2021-08-02] MEDS ORDERED: naltrexone 50mg tablet PO SCH (08:00)
[2021-08-02] MEDS: metoprolol succinate 25mg (24-HOUR) SR. Tablet PO SCH (08:56)
[2021-08-02] MEDS: hyDRALAzine 10mg tablet PO SCH (08:57)
[2021-08-02] MEDS: spironolactone 25 MG tablet PO SCH (08:58)
[2021-08-02] MEDS: aspirin 81mg, enteric-coated 1 TAB TABLET.DR PO SCH (08:59)
[2021-08-02] MEDS: apixaban 5mg tablet PO SCH (08:59)
[2021-08-02] MEDS: amiodarone 200mg tablet PO SCH (09:00)
[2021-08-02] MEDS: fenofibrate 145mg tablet PO SCH (09:00)
[2021-08-02] MEDS: folic acid 1mg tablet PO SCH (09:00)
[2021-08-02] MEDS: nicotine 21mg patch - 24 hr TD SCH (09:01)
[2021-08-02] MEDS: allopurinol 100mg tablet PO SCH (09:01)
[2021-08-02] MEDS: furosemide 40mg/4ml inj IV SCH (09:02)
[2021-08-02] MEDS: docusate sod 100mg capsule PO SCH (09:02)
[2021-08-02] MEDS ORDERED: DILT-88 PO (10:53)
[2021-08-02] MEDS ORDERED: NICO-687 TD (10:53)
[2021-08-02] MEDS ORDERED: NALT50TA PO (10:53)
[2021-08-02 11:00] VITALS: BP 115/69
--- NOTE | 2021-08-02 13:05 | NUR ---
Pt. received discharge instructions with no further questions; Pt. IV removed with catheter intact; Pt. tele cleaned and returned; Per Dr. Veliz pt is ready for discharge; Pt. left via wheelchair in private car. Leonor Click PCU
[2021-08-02] MEDS ORDERED: LORazepam 1 MG tablet PO PRN (20:15)
[2021-08-02] MEDS ORDERED: LORazepam 2 mg/ml vial IV PRN (20:15)
[2021-08-02] MEDS ORDERED: lisinopril 20mg tablet PO SCH (21:00)
[2021-08-04] MEDS ORDERED: thiamine 100mg tablet PO SCH (08:00)
[2021-08-04] MEDS ORDERED: LORazepam 2 mg/ml vial IV PRN (20:15)
[2021-08-04] MEDS ORDERED: LORazepam 1 MG tablet PO PRN (20:15)
== END 2021-08-02 13:05 | disposition home or self-care (01) | DRG 201 ==
LOC: ER 07:54 → ED HOLD 20:23 → PCU 3S 08-01 20:20
PROVIDERS: ADMIT Family Medicine; ATTEND Family Medicine
DX: I48.91 Unspecified atrial fibrillation (principal); I21.A1 Myocardial infarction type 2; N17.9 Acute kidney failure, unspecified; I13.0 Hypertensive heart and chronic kidney disease with heart failure and stage 1 through stage 4 chronic kidney disease, or unspecified chronic kidney disease; I50.22 Chronic systolic (congestive) heart failure; E78.5 Hyperlipidemia, unspecified; N18.30 Chronic kidney disease, stage 3 unspecified; Z60.2 Problems related to living alone; Z20.822 Contact with and (suspected) exposure to COVID-19; G47.33 Obstructive sleep apnea (adult) (pediatric); F10.10 Alcohol abuse, uncomplicated; F17.220 Nicotine dependence, chewing tobacco, uncomplicated; I25.10 Atherosclerotic heart disease of native coronary artery without angina pectoris; M54.9 Dorsalgia, unspecified; I25.2 Old myocardial infarction; Z82.49 Family history of ischemic heart disease and other diseases of the circulatory system; Z83.3 Family history of diabetes mellitus; Z79.899 Other long term (current) drug therapy; Z79.82 Long term (current) use of aspirin; Z71.6 Tobacco abuse counseling
CPT/HCPCS: 36415; 71045; 80053; 83735; 83880; 84100; 84145; 84484; 85025; 85610; 87081; 87635; 93005; 94760; 96374; 99285; C9803; G0378; J1940; J3411; J3490

== ENCOUNTER 2021-10-22 17:06 | Inpatient (IN) | payer MEDICAID ==
[~2021-10-22] VITALS: Ht 177.8 cm; Wt 159.0 kg
[~2021-10-22 17:06] MED LIST changes: +AMIO200T61 PO; +DILT-88 PO; +HYDR-4069 PO; +LISI40TA13 PO; -LISI5TAB22 PO; -METO-395 PO; +METO200T49 PO; +NALT50TA PO; +NICO-687 TD; +SPIR25TA5 PO
[2021-10-22 18:06] LABS: BASOPHILS # (AUTO) 0.1 X10'3 (0-0.2); BASOPHILS % (AUTO) 0.6 % (0-1); EOSINOPHILS % (AUTO) 0 % (0-6); HEMATOCRIT 39.5 % (42.0-52.0); HEMOGLOBIN 12.9 g/dl (14.0-17.9); LYMPHOCYTES % (AUTO) 8.5 % (21-51); MEAN CORPUSCULAR HEMOGLOBIN 29.1 PG (27.0-31.0); MEAN CORPUSCULAR HGB CONC 32.7 g/dL (33.0-36.5); MEAN PLATELET VOLUME 7.8 FL (7.4-10.4); MONOCYTES # (AUTO) 0.8 X10'3 (0-0.9); MONOCYTES % (AUTO) 6.8 % (2-12); NEUTROPHILS # (AUTO) 9.6 X10'3 (1.8-7.7); NEUTROPHILS % (AUTO) 84.1 % (42-75); PLATELET COUNT 377 X10'3 (140-440); RED BLOOD COUNT 4.44 X10'6 (4.70-6.10); RED CELL DISTRIBUTION WIDTH 16.9 % (11.5-14.5); WHITE BLOOD COUNT 11.4 X10'3 (4.5-11.0)
[2021-10-22 18:16] LABS: ALANINE AMINOTRANSFERASE 248 U/L (12-78); ALBUMIN 3.2 G/DL (3.4-5.0); ALBUMIN/GLOBULIN RATIO 0.8 (1.1-1.5); ALKALINE PHOSPHATASE 63 IU/L (46-116); ANION GAP 13 (8-16); ASPARTATE AMINO TRANSFERASE 406 U/L (10-37); BILIRUBIN,TOTAL 1.1 MG/DL (0.1-1.0); BLOOD UREA NITROGEN 43 MG/DL (7-18); BUN/CREATININE RATIO 19.5 (5.4-32.0); CHLORIDE 102 MMOL/L (99-107); GLUCOSE 189 MG/DL (70-104); SODIUM 141 MMOL/L (135-145); TOTAL CARBON DIOXIDE 26.3 MMOL/L (24-32); TOTAL PROTEIN 7.2 G/DL (6.4-8.2); eGFR 32 ML/MIN
[2021-10-22] MEDS ORDERED: furosemide 40mg/4ml inj IV ONE (21:25)
[2021-10-22] MEDS ORDERED: potassium Cl 20 mEq SR tablet PO PRN ×2 (23:10)
[2021-10-22] MEDS ORDERED: ondansetron/PF 4mg/2ml inj IV PRN (23:10)
[2021-10-22] MEDS ORDERED: ipratropium/albuterol 3ml nebule NEB PRN (23:10)
[2021-10-22] MEDS ORDERED: albuterol 2.5 MG/3 ML nebule NEB PRN (23:10)
[2021-10-22] MEDS ORDERED: magnesium 2GM in 50ml NS 50 ML IV PRN (23:10)
[2021-10-22] MEDS ORDERED: mag hydrox/Alum hydrox/simeth 30ml oral suspension PO PRN (23:10)
[2021-10-22] MEDS ORDERED: acetaminophen 325mg tablet PO PRN (23:10)
[2021-10-22] MEDS ORDERED: potassium CL 10mEq/100ml bag 100 ML IV PRN (23:10)
[2021-10-22] MEDS ORDERED: magnesium 4gm in 100ml NS 100 ML IV PRN (23:10)
[2021-10-22] MEDS ORDERED: magnesium hydroxide 30ml (MOM) UD suspension PO PRN (23:10)
[2021-10-22] MEDS ORDERED: PERFLUTREN PROTEIN-A MICROSPHR (Optison) 0.22 MG/ML 3ML VIAL IV PRN (23:10)
[2021-10-22] MEDS ORDERED: morphine 4 MG/ML inj SYRINge IV ONE (23:30)
[2021-10-22] MEDS ORDERED: [UNRECOGNIZED DRUG - CODE] PO (23:40)
--- NOTE | 2021-10-23 00:17 | NUR ---
DR Paul TOVAR FOR HTN MEDS. STATES THAT HE IS WORKING ON ORDER NOW
[2021-10-23] MEDS ORDERED: LORazepam 2 mg/ml vial IV PRN (00:20)
[2021-10-23] MEDS: hydrALAZINE 20mg/ml inj. IV PRN (00:35)
[2021-10-23 01:50] VITALS: BP 206/136
[2021-10-23 02:00] VITALS: BP 163/95
--- NOTE | 2021-10-23 03:24 | NUR ---
PT ADMITTED TO UNIT. A/OX4, RESP EVEN AND NONLABORED W/ EQUAL CHEST EXPANSION BILATERALLY ON 2LPM VIA NASAL CANNULA. SOB W/ EXERTION NOTED. HEART SOUNDS NORMAL TO AUSCULTATION, S1/S2 NOTED. RADIAL AND PEDAL PULSES PALPABLE BILATERALLY. CAPILLARY REFILL LESS THAN 3 SECONDS. ABD QUADRANTS NORMOACTIVE X4. ABD SOFT, NONTENDER TO TOUCH AND OBESE. PT HYPERTENSIVE UPON ADMISSION R/T MOVING FROM STRETCHER TO BED. BP DECREASED ONCE RELAXED. PT C/O BACK PAIN, ORDERED PRN PAIN MANAGEMENT MEDICATIONS. NO S/S OF ACUTE DISTRESS NOTED. WILL CONTINUE TO OBSERVE.
[2021-10-23] MEDS: morphine 2 MG/ML inj. syringe IV PRN ×3 (04:57→13:26)
[2021-10-23 06:00] VITALS: BP 158/84
[2021-10-23 06:40] LABS: BASOPHILS # (AUTO) 0.1 X10'3 (0-0.2); BASOPHILS % (AUTO) 0.7 % (0-1); EOSINOPHILS % (AUTO) 0.1 % (0-6); HEMATOCRIT 37.8 % (42.0-52.0); HEMOGLOBIN 12.3 g/dl (14.0-17.9); LYMPHOCYTES # (AUTO) 1.1 X10'3 (1.1-4.8); LYMPHOCYTES % (AUTO) 9.8 % (21-51); MEAN CORPUSCULAR HEMOGLOBIN 29.1 PG (27.0-31.0); MEAN CORPUSCULAR HGB CONC 32.6 g/dL (33.0-36.5); MEAN CORPUSCULAR VOLUME 89.4 FL (78-98); MEAN PLATELET VOLUME 7.9 FL (7.4-10.4); MONOCYTES # (AUTO) 0.8 X10'3 (0-0.9); MONOCYTES % (AUTO) 7.8 % (2-12); NEUTROPHILS # (AUTO) 8.8 X10'3 (1.8-7.7); NEUTROPHILS % (AUTO) 81.6 % (42-75); PLATELET COUNT 363 X10'3 (140-440); RED BLOOD COUNT 4.22 X10'6 (4.70-6.10); RED CELL DISTRIBUTION WIDTH 17.2 % (11.5-14.5); WHITE BLOOD COUNT 10.8 X10'3 (4.5-11.0)
[2021-10-23 07:15] LABS: ALANINE AMINOTRANSFERASE 221 U/L (12-78); ALBUMIN 3.2 G/DL (3.4-5.0); ALBUMIN/GLOBULIN RATIO 0.9 (1.1-1.5); ALKALINE PHOSPHATASE 59 IU/L (46-116); ANION GAP 9 (8-16); ASPARTATE AMINO TRANSFERASE 235 U/L (10-37); BILIRUBIN,TOTAL 0.8 MG/DL (0.1-1.0); BLOOD UREA NITROGEN 48 MG/DL (7-18); BUN/CREATININE RATIO 22.2 (5.4-32.0); CALCIUM 8.4 MG/DL (8.5-10.1); CHLORIDE 106 MMOL/L (99-107); CREATININE 2.16 MG/DL (0.60-1.10); GLUCOSE 131 MG/DL (70-104); MAGNESIUM 2.2 MG/DL (1.5-2.4); SODIUM 143 MMOL/L (135-145); TOTAL CARBON DIOXIDE 28.2 MMOL/L (24-32); TOTAL PROTEIN 6.9 G/DL (6.4-8.2); eGFR 33 ML/MIN
[2021-10-23] MEDS ORDERED: multivitamins, therapeutics tablet PO SCH (08:00)
[2021-10-23] MEDS: K and/or MAG REPLACEMENT MC SCH ×2 (08:00→20:00)
[2021-10-23] MEDS: multivitamins, therapeutics tablet PO SCH (08:54)
[2021-10-23] MEDS: furosemide 40mg/4ml inj IV SCH ×2 (08:55→19:40)
[2021-10-23] MEDS: lisinopril 20mg tablet PO SCH (08:55)
[2021-10-23] MEDS: metoprolol succinate 25mg (24-HOUR) SR. Tablet PO SCH (08:56)
[2021-10-23] MEDS: folic acid 1mg tablet PO SCH (08:56)
[2021-10-23] MEDS: hyDRALAzine 10mg tablet PO SCH ×2 (08:56→19:39)
[2021-10-23] MEDS: docusate sod 100mg capsule PO SCH ×2 (08:57→19:39)
[2021-10-23] MEDS: fenofibrate 145mg tablet PO SCH (08:57)
[2021-10-23] MEDS: apixaban 5mg tablet PO SCH ×2 (08:57→19:39)
[2021-10-23] MEDS: spironolactone 25 MG tablet PO SCH ×2 (08:58→19:39)
[2021-10-23] MEDS: allopurinol 100mg tablet PO SCH (08:58)
[2021-10-23] MEDS: amiodarone 200mg tablet PO SCH ×2 (08:58→19:39)
[2021-10-23] MEDS: thiamine 100mg tablet PO SCH (08:59)
[2021-10-23 11:00] VITALS: BP 161/87
[2021-10-23] MEDS ORDERED: ondansetron 4mg rapidly disintigrating tab PO PRN (16:15)
[2021-10-23 18:00] VITALS: BP 147/86
[2021-10-23] MEDS: morphine 4 MG/ML inj SYRINge IV PRN (19:48)
[2021-10-23] MEDS ORDERED: enoxaparin 40mg/0.4ml syringe SQ SCH (20:00)
[2021-10-23 22:00] VITALS: BP 167/84
[2021-10-24 02:00] VITALS: BP 140/75
[2021-10-24] MEDS: morphine 2 MG/ML inj. syringe IV PRN ×4 (02:50→19:56)
[2021-10-24 06:00] VITALS: BP 145/87
[2021-10-24 06:15] LABS: BASOPHILS # (AUTO) 0.1 X10'3 (0-0.2); BASOPHILS % (AUTO) 0.6 % (0-1); EOSINOPHILS % (AUTO) 0.5 % (0-6); HEMATOCRIT 36.6 % (42.0-52.0); HEMOGLOBIN 11.9 g/dl (14.0-17.9); LYMPHOCYTES # (AUTO) 0.9 X10'3 (1.1-4.8); LYMPHOCYTES % (AUTO) 10.4 % (21-51); MEAN CORPUSCULAR HEMOGLOBIN 29.1 PG (27.0-31.0); MEAN CORPUSCULAR HGB CONC 32.5 g/dL (33.0-36.5); MEAN CORPUSCULAR VOLUME 89.6 FL (78-98); MEAN PLATELET VOLUME 7.8 FL (7.4-10.4); MONOCYTES # (AUTO) 0.7 X10'3 (0-0.9); MONOCYTES % (AUTO) 7.7 % (2-12); NEUTROPHILS # (AUTO) 7.2 X10'3 (1.8-7.7); NEUTROPHILS % (AUTO) 80.8 % (42-75); PLATELET COUNT 289 X10'3 (140-440); RED BLOOD COUNT 4.09 X10'6 (4.70-6.10); RED CELL DISTRIBUTION WIDTH 16.8 % (11.5-14.5); WHITE BLOOD COUNT 8.9 X10'3 (4.5-11.0)
[2021-10-24 06:30] LABS: ALANINE AMINOTRANSFERASE 186 U/L (12-78); ALBUMIN 2.9 G/DL (3.4-5.0); ALBUMIN/GLOBULIN RATIO 0.9 (1.1-1.5); ALKALINE PHOSPHATASE 53 IU/L (46-116); ANION GAP 7 (8-16); ASPARTATE AMINO TRANSFERASE 139 U/L (10-37); BILIRUBIN,TOTAL 0.7 MG/DL (0.1-1.0); BLOOD UREA NITROGEN 51 MG/DL (7-18); BUN/CREATININE RATIO 21.3 (5.4-32.0); CALCIUM 8.9 MG/DL (8.5-10.1); CHLORIDE 103 MMOL/L (99-107); CREATININE 2.39 MG/DL (0.60-1.10); GLUCOSE 139 MG/DL (70-104); LIPASE 112 U/L (73-393); MAGNESIUM 2.1 MG/DL (1.5-2.4); PHOSPHORUS 4.2 MG/DL (2.3-4.5); POTASSIUM 4.1 MMOL/L (3.5-5.1); SODIUM 140 MMOL/L (135-145); TOTAL PROTEIN 6.3 G/DL (6.4-8.2); eGFR 29 ML/MIN
--- NOTE | 2021-10-24 06:53 | NUR ---
Problems reprioritized. Patient report given, questions answered & plan of care reviewed with . MIKO CUELLAR
[2021-10-24] MEDS: K and/or MAG REPLACEMENT MC SCH ×2 (08:00→20:00)
[2021-10-24] MEDS: hyDRALAzine 10mg tablet PO SCH ×2 (08:00→19:55)
[2021-10-24] MEDS: lisinopril 20mg tablet PO SCH (08:24)
[2021-10-24] MEDS: fenofibrate 145mg tablet PO SCH (08:24)
[2021-10-24] MEDS: metoprolol succinate 25mg (24-HOUR) SR. Tablet PO SCH (08:24)
[2021-10-24] MEDS: docusate sod 100mg capsule PO SCH ×2 (08:25→19:55)
[2021-10-24] MEDS: thiamine 100mg tablet PO SCH (08:25)
[2021-10-24] MEDS: apixaban 5mg tablet PO SCH ×2 (08:25→19:55)
[2021-10-24] MEDS: folic acid 1mg tablet PO SCH (08:25)
[2021-10-24] MEDS: allopurinol 100mg tablet PO SCH (08:25)
[2021-10-24] MEDS: amiodarone 200mg tablet PO SCH ×2 (08:25→19:55)
[2021-10-24] MEDS: spironolactone 25 MG tablet PO SCH ×2 (08:25→19:55)
[2021-10-24] MEDS: furosemide 40mg/4ml inj IV SCH ×2 (08:26→19:58)
[2021-10-24] MEDS: multivitamins, therapeutics tablet PO SCH (08:26)
[2021-10-24 11:00] VITALS: BP 142/76
[2021-10-24 15:00] VITALS: BP 156/87
[2021-10-24 18:00] VITALS: BP 144/85
[2021-10-24] MEDS: LORazepam 1 MG tablet PO PRN (19:55)
[2021-10-24 22:00] VITALS: BP 135/82
[2021-10-25] MEDS: morphine 2 MG/ML inj. syringe IV PRN ×4 (01:53→20:22)
[2021-10-25 02:00] VITALS: BP 138/81
[2021-10-25 06:00] VITALS: BP 163/85
[2021-10-25 06:37] LABS: BASOPHILS # (AUTO) 0.1 X10'3 (0-0.2); BASOPHILS % (AUTO) 0.8 % (0-1); EOSINOPHILS # (AUTO) 0.1 X10'3 (0-0.9); EOSINOPHILS % (AUTO) 0.9 % (0-6); HEMATOCRIT 36.6 % (42.0-52.0); HEMOGLOBIN 11.9 g/dl (14.0-17.9); LYMPHOCYTES % (AUTO) 10.1 % (21-51); MEAN CORPUSCULAR HGB CONC 32.5 g/dL (33.0-36.5); MEAN CORPUSCULAR VOLUME 89.3 FL (78-98); MEAN PLATELET VOLUME 8.2 FL (7.4-10.4); MONOCYTES % (AUTO) 9.9 % (2-12); NEUTROPHILS # (AUTO) 7.5 X10'3 (1.8-7.7); NEUTROPHILS % (AUTO) 78.3 % (42-75); PLATELET COUNT 280 X10'3 (140-440); RED CELL DISTRIBUTION WIDTH 17.1 % (11.5-14.5); WHITE BLOOD COUNT 9.6 X10'3 (4.5-11.0)
[2021-10-25 06:57] LABS: ALANINE AMINOTRANSFERASE 183 U/L (12-78); ALBUMIN/GLOBULIN RATIO 0.8 (1.1-1.5); ALKALINE PHOSPHATASE 52 IU/L (46-116); ANION GAP 9 (8-16); ASPARTATE AMINO TRANSFERASE 123 U/L (10-37); BILIRUBIN,TOTAL 0.6 MG/DL (0.1-1.0); BLOOD UREA NITROGEN 53 MG/DL (7-18); BUN/CREATININE RATIO 23.1 (5.4-32.0); CALCIUM 8.7 MG/DL (8.5-10.1); CHLORIDE 103 MMOL/L (99-107); CREATININE 2.29 MG/DL (0.60-1.10); GLUCOSE 137 MG/DL (70-104); LIPASE 126 U/L (73-393); MAGNESIUM 2.2 MG/DL (1.5-2.4); POTASSIUM 4.4 MMOL/L (3.5-5.1); SODIUM 143 MMOL/L (135-145); TOTAL PROTEIN 6.6 G/DL (6.4-8.2); eGFR 31 ML/MIN
[2021-10-25] MEDS: K and/or MAG REPLACEMENT MC SCH ×2 (08:00→20:00)
[2021-10-25] MEDS: apixaban 5mg tablet PO SCH ×2 (08:30→20:21)
[2021-10-25] MEDS: lisinopril 20mg tablet PO SCH (08:30)
[2021-10-25] MEDS: metoprolol succinate 25mg (24-HOUR) SR. Tablet PO SCH (08:30)
[2021-10-25] MEDS: amiodarone 200mg tablet PO SCH ×2 (08:30→20:21)
[2021-10-25] MEDS: spironolactone 25 MG tablet PO SCH ×2 (08:31→20:21)
[2021-10-25] MEDS: hyDRALAzine 10mg tablet PO SCH ×2 (08:31→20:21)
[2021-10-25] MEDS: hydrALAZINE 20mg/ml inj. IV PRN (08:31)
[2021-10-25] MEDS: fenofibrate 145mg tablet PO SCH (08:31)
[2021-10-25] MEDS: docusate sod 100mg capsule PO SCH ×2 (08:31→20:20)
[2021-10-25] MEDS: multivitamins, therapeutics tablet PO SCH (08:32)
[2021-10-25] MEDS: furosemide 40mg/4ml inj IV SCH ×2 (08:32→20:21)
[2021-10-25] MEDS: thiamine 100mg tablet PO SCH (08:32)
[2021-10-25] MEDS: folic acid 1mg tablet PO SCH (08:32)
[2021-10-25] MEDS: allopurinol 100mg tablet PO SCH (08:32)
[2021-10-25 11:00] VITALS: BP 156/81
[2021-10-25 15:00] VITALS: BP 164/83
[2021-10-25 18:00] VITALS: BP 145/87
[2021-10-25] MEDS: LORazepam 1 MG tablet PO PRN (20:20)
[2021-10-25 22:00] VITALS: BP 163/98
[2021-10-26 02:00] VITALS: BP 146/93
[2021-10-26 06:00] VITALS: BP 164/94
[2021-10-26 06:31] LABS: BASOPHILS # (AUTO) 0.1 X10'3 (0-0.2); BASOPHILS % (AUTO) 0.6 % (0-1); EOSINOPHILS # (AUTO) 0.1 X10'3 (0-0.9); EOSINOPHILS % (AUTO) 0.5 % (0-6); HEMATOCRIT 37.9 % (42.0-52.0); HEMOGLOBIN 12.3 g/dl (14.0-17.9); LYMPHOCYTES # (AUTO) 0.6 X10'3 (1.1-4.8); LYMPHOCYTES % (AUTO) 5.4 % (21-51); MEAN CORPUSCULAR HEMOGLOBIN 28.6 PG (27.0-31.0); MEAN CORPUSCULAR HGB CONC 32.4 g/dL (33.0-36.5); MEAN CORPUSCULAR VOLUME 88.5 FL (78-98); MEAN PLATELET VOLUME 7.7 FL (7.4-10.4); MONOCYTES # (AUTO) 0.8 X10'3 (0-0.9); MONOCYTES % (AUTO) 7.4 % (2-12); NEUTROPHILS # (AUTO) 9.4 X10'3 (1.8-7.7); NEUTROPHILS % (AUTO) 86.1 % (42-75); PLATELET COUNT 277 X10'3 (140-440); RED BLOOD COUNT 4.29 X10'6 (4.70-6.10); RED CELL DISTRIBUTION WIDTH 17.4 % (11.5-14.5); WHITE BLOOD COUNT 10.9 X10'3 (4.5-11.0)
[2021-10-26 06:50] LABS: ALANINE AMINOTRANSFERASE 145 U/L (12-78); ALBUMIN/GLOBULIN RATIO 0.8 (1.1-1.5); ALKALINE PHOSPHATASE 51 IU/L (46-116); ANION GAP 8 (8-16); ASPARTATE AMINO TRANSFERASE 74 U/L (10-37); BLOOD UREA NITROGEN 52 MG/DL (7-18); BUN/CREATININE RATIO 24.1 (5.4-32.0); CHLORIDE 99 MMOL/L (99-107); CREATININE 2.16 MG/DL (0.60-1.10); GLUCOSE 167 MG/DL (70-104); LIPASE 82 U/L (73-393); MAGNESIUM 1.9 MG/DL (1.5-2.4); PHOSPHORUS 3.7 MG/DL (2.3-4.5); SODIUM 138 MMOL/L (135-145); TOTAL CARBON DIOXIDE 30.8 MMOL/L (24-32); TOTAL PROTEIN 6.6 G/DL (6.4-8.2); eGFR 33 ML/MIN
--- NOTE | 2021-10-26 06:50 | NUR ---
Problems reprioritized. Patient report given, questions answered & plan of care reviewed with Jose CUELLAR.
[2021-10-26] MEDS: furosemide 40mg/4ml inj IV SCH ×2 (07:47→20:00)
[2021-10-26] MEDS: metoprolol succinate 25mg (24-HOUR) SR. Tablet PO SCH (07:47)
[2021-10-26] MEDS: docusate sod 100mg capsule PO SCH ×2 (07:48→20:00)
[2021-10-26] MEDS: lisinopril 20mg tablet PO SCH (07:48)
[2021-10-26] MEDS: multivitamins, therapeutics tablet PO SCH (07:48)
[2021-10-26] MEDS: folic acid 1mg tablet PO SCH (07:48)
[2021-10-26] MEDS: spironolactone 25 MG tablet PO SCH ×2 (07:49→20:05)
[2021-10-26] MEDS: allopurinol 100mg tablet PO SCH (07:49)
[2021-10-26] MEDS: thiamine 100mg tablet PO SCH (07:49)
[2021-10-26] MEDS: fenofibrate 145mg tablet PO SCH (07:49)
[2021-10-26] MEDS: apixaban 5mg tablet PO SCH ×2 (07:49→20:01)
[2021-10-26] MEDS: amiodarone 200mg tablet PO SCH ×2 (07:49→20:02)
[2021-10-26] MEDS: hyDRALAzine 10mg tablet PO SCH ×2 (07:56→20:01)
[2021-10-26] MEDS: hydrALAZINE 20mg/ml inj. IV PRN (07:57)
[2021-10-26] MEDS: K and/or MAG REPLACEMENT MC SCH ×2 (08:00→18:39)
--- NOTE | 2021-10-26 09:15 | NUR ---
Initial: Pt admitted w/ acute systolic heart failure and w/ a chronic full thickness old surgical wound that has not healed per [facility] assessment. Currently on heart Healthy diet w/ 1.5L fluid restriction, eating mostly 100% of meals meeting est nutrient needs at this time. Pt may benefit from Cody smoothdivina BID to assist w/ wound healing. [facility] 10/22 receiving routine colace. Will continue to monitor. Recs: 1. Continue Heart healthy diet w/ 1.5L fluid restriction per MD 2. Cody howard BIDBD; pending MD verification 3. Bowel care per rx 4. Weekly wts Addendum: 10/26/21 at [address] Amended: Links added.
[2021-10-26] MEDS: morphine 2 MG/ML inj. syringe IV PRN ×3 (10:29→20:30)
[2021-10-26 11:00] VITALS: BP 159/87
[2021-10-26] MEDS: JUVEN Smoothie Arginine/Glut./Ca2+Bmb (Juven 19.3pkt) 240ml cup PO SCH (17:30)
[2021-10-26 18:00] VITALS: BP 184/74
[2021-10-26 22:00] VITALS: BP 138/76
[2021-10-27] MEDS: morphine 2 MG/ML inj. syringe IV PRN ×4 (01:34→18:53)
[2021-10-27 06:00] VITALS: BP 164/87
[2021-10-27 06:15] LABS: BASOPHILS % (AUTO) 0.6 % (0-1); EOSINOPHILS # (AUTO) 0.1 X10'3 (0-0.9); EOSINOPHILS % (AUTO) 1.4 % (0-6); HEMATOCRIT 37.4 % (42.0-52.0); HEMOGLOBIN 12.1 g/dl (14.0-17.9); LYMPHOCYTES # (AUTO) 0.7 X10'3 (1.1-4.8); LYMPHOCYTES % (AUTO) 9.2 % (21-51); MEAN CORPUSCULAR HEMOGLOBIN 29.1 PG (27.0-31.0); MEAN CORPUSCULAR HGB CONC 32.5 g/dL (33.0-36.5); MEAN CORPUSCULAR VOLUME 89.6 FL (78-98); MEAN PLATELET VOLUME 7.8 FL (7.4-10.4); MONOCYTES # (AUTO) 0.8 X10'3 (0-0.9); MONOCYTES % (AUTO) 10.3 % (2-12); NEUTROPHILS # (AUTO) 6.3 X10'3 (1.8-7.7); NEUTROPHILS % (AUTO) 78.5 % (42-75); PLATELET COUNT 225 X10'3 (140-440); RED BLOOD COUNT 4.17 X10'6 (4.70-6.10); RED CELL DISTRIBUTION WIDTH 17.4 % (11.5-14.5); WHITE BLOOD COUNT 8.1 X10'3 (4.5-11.0)
[2021-10-27 06:39] LABS: ALANINE AMINOTRANSFERASE 108 U/L (12-78); ALBUMIN 2.8 G/DL (3.4-5.0); ALBUMIN/GLOBULIN RATIO 0.8 (1.1-1.5); ALKALINE PHOSPHATASE 47 IU/L (46-116); ANION GAP 9 (8-16); ASPARTATE AMINO TRANSFERASE 51 U/L (10-37); BLOOD UREA NITROGEN 51 MG/DL (7-18); BUN/CREATININE RATIO 22.2 (5.4-32.0); CALCIUM 9.2 MG/DL (8.5-10.1); CHLORIDE 100 MMOL/L (99-107); GLUCOSE 137 MG/DL (70-104); LIPASE 87 U/L (73-393); PHOSPHORUS 3.9 MG/DL (2.3-4.5); POTASSIUM 3.9 MMOL/L (3.5-5.1); SODIUM 140 MMOL/L (135-145); TOTAL CARBON DIOXIDE 31.5 MMOL/L (24-32); TOTAL PROTEIN 6.4 G/DL (6.4-8.2); eGFR 31 ML/MIN
[2021-10-27] MEDS: allopurinol 100mg tablet PO SCH (07:46)
[2021-10-27] MEDS: folic acid 1mg tablet PO SCH (07:47)
[2021-10-27] MEDS: hyDRALAzine 10mg tablet PO SCH ×2 (07:47→19:25)
[2021-10-27] MEDS: multivitamins, therapeutics tablet PO SCH (07:47)
[2021-10-27] MEDS: metoprolol succinate 25mg (24-HOUR) SR. Tablet PO SCH (07:47)
[2021-10-27] MEDS: lisinopril 20mg tablet PO SCH (07:48)
[2021-10-27] MEDS: fenofibrate 145mg tablet PO SCH (07:48)
[2021-10-27] MEDS: docusate sod 100mg capsule PO SCH ×2 (07:48→19:25)
[2021-10-27] MEDS: apixaban 5mg tablet PO SCH ×2 (07:48→19:24)
[2021-10-27] MEDS: thiamine 100mg tablet PO SCH (07:48)
[2021-10-27] MEDS: amiodarone 200mg tablet PO SCH ×2 (07:48→19:25)
[2021-10-27] MEDS: spironolactone 25 MG tablet PO SCH ×2 (07:49→19:24)
[2021-10-27] MEDS: furosemide 40mg/4ml inj IV SCH ×2 (07:55→19:24)
[2021-10-27] MEDS: K and/or MAG REPLACEMENT MC SCH ×2 (08:00→19:25)
[2021-10-27 11:00] VITALS: BP 148/107
[2021-10-27 15:00] VITALS: BP 134/80
[2021-10-27] MEDS: JUVEN Smoothie Arginine/Glut./Ca2+Bmb (Juven 19.3pkt) 240ml cup PO SCH (17:30)
[2021-10-27 18:00] VITALS: BP 164/88
[2021-10-27 19:50] VITALS: BP 162/88
[2021-10-27 22:00] VITALS: BP 154/93
[2021-10-27] MEDS: morphine 4 MG/ML inj SYRINge IV PRN (23:40)
[2021-10-28] MEDS: morphine 2 MG/ML inj. syringe IV PRN (04:46)
[2021-10-28] MEDS: JUVEN Smoothie Arginine/Glut./Ca2+Bmb (Juven 19.3pkt) 240ml cup PO SCH ×2 (07:30→17:30)
[2021-10-28] MEDS: furosemide 40mg/4ml inj IV SCH ×2 (08:00→20:00)
[2021-10-28] MEDS: docusate sod 100mg capsule PO SCH ×2 (08:00→19:51)
[2021-10-28] MEDS: K and/or MAG REPLACEMENT MC SCH ×2 (08:00→20:00)
[2021-10-28 08:10] LABS: PHOSPHORUS 4.5 MG/DL (2.3-4.5)
[2021-10-28] MEDS: fenofibrate 145mg tablet PO SCH (09:15)
[2021-10-28] MEDS: morphine 4 MG/ML inj SYRINge IV PRN ×2 (09:15→14:08)
[2021-10-28] MEDS: spironolactone 25 MG tablet PO SCH (09:16)
[2021-10-28] MEDS: multivitamins, therapeutics tablet PO SCH (09:16)
[2021-10-28] MEDS: thiamine 100mg tablet PO SCH (09:17)
[2021-10-28] MEDS: allopurinol 100mg tablet PO SCH (09:17)
[2021-10-28] MEDS: apixaban 5mg tablet PO SCH ×2 (09:17→19:51)
[2021-10-28] MEDS: lisinopril 20mg tablet PO SCH (09:17)
[2021-10-28] MEDS: amiodarone 200mg tablet PO SCH ×2 (09:17→19:51)
[2021-10-28] MEDS: folic acid 1mg tablet PO SCH (09:18)
[2021-10-28] MEDS: metoprolol succinate 25mg (24-HOUR) SR. Tablet PO SCH (09:18)
[2021-10-28] MEDS: hyDRALAzine 10mg tablet PO SCH ×2 (09:18→19:50)
[2021-10-28 14:44] LABS: MAGNESIUM 2.2 MG/DL (1.5-2.4); POTASSIUM 4.4 MMOL/L (3.5-5.1)
[2021-10-28 15:00] VITALS: BP 128/83
[2021-10-28 18:00] VITALS: BP 141/81
[2021-10-28] MEDS: HYDROcodone/acetaminophen 5mg/325mg tablet PO PRN (19:52)
--- NOTE | 2021-10-28 20:52 | NUR ---
Dr Jenkins Notified of ineffective pain management, ordered one time dose of [place] 10. Also made aware of loss of IV access and inability to give IV meds. Attempted to restart IV, failed, pt refused additional attempts. No new orders.
[2021-10-28 22:00] VITALS: BP 152/72
[2021-10-28] MEDS ORDERED: HYDROcodone/acetaminophen 10/325mg tab PO ONE (22:45)
[2021-10-29 02:00] VITALS: BP 141/77
[2021-10-29] MEDS: HYDROcodone/acetaminophen 5mg/325mg tablet PO PRN ×3 (04:11→12:33)
[2021-10-29 06:00] VITALS: BP 134/71
--- NOTE | 2021-10-29 06:43 | NUR ---
Patient in room PCU 3022. I have received report from Gregg CUELLAR and had the opportunity to ask questions and assume patient care.
[2021-10-29 07:05] LABS: ALBUMIN 2.8 G/DL (3.4-5.0); ANION GAP 9 (8-16); BLOOD UREA NITROGEN 58 MG/DL (7-18); BUN/CREATININE RATIO 24.2 (5.4-32.0); CALCIUM 8.9 MG/DL (8.5-10.1); CHLORIDE 100 MMOL/L (99-107); GLUCOSE 111 MG/DL (70-104); POTASSIUM 4.5 MMOL/L (3.5-5.1); SODIUM 141 MMOL/L (135-145); TOTAL CARBON DIOXIDE 31.7 MMOL/L (24-32); eGFR 29 ML/MIN
[2021-10-29] MEDS: JUVEN Smoothie Arginine/Glut./Ca2+Bmb (Juven 19.3pkt) 240ml cup PO SCH (07:30)
[2021-10-29] MEDS: multivitamins, therapeutics tablet PO SCH (07:55)
[2021-10-29] MEDS: folic acid 1mg tablet PO SCH (07:55)
[2021-10-29] MEDS: docusate sod 100mg capsule PO SCH (07:56)
[2021-10-29] MEDS: hyDRALAzine 10mg tablet PO SCH (07:57)
[2021-10-29] MEDS: apixaban 5mg tablet PO SCH (07:57)
[2021-10-29] MEDS: metoprolol succinate 25mg (24-HOUR) SR. Tablet PO SCH (07:57)
[2021-10-29] MEDS: amiodarone 200mg tablet PO SCH (07:58)
[2021-10-29] MEDS: thiamine 100mg tablet PO SCH (07:58)
[2021-10-29] MEDS: allopurinol 100mg tablet PO SCH (07:58)
[2021-10-29] MEDS: fenofibrate 145mg tablet PO SCH (07:58)
[2021-10-29] MEDS: lisinopril 20mg tablet PO SCH (07:58)
[2021-10-29] MEDS: K and/or MAG REPLACEMENT MC SCH (08:00)
[2021-10-29] MEDS ORDERED: AMOX-580 PO (09:35)
[2021-10-29] MEDS ORDERED: FURO40TA4 PO (09:35)
[2021-10-29] MEDS: furosemide 40mg/4ml inj IV SCH (09:45)
[2021-10-29 11:00] VITALS: BP 143/67
--- NOTE | 2021-10-29 14:08 | NUR ---
MD aware of left AC IV site that looks red and pus from it. It put patient on antibiotics. Patient also stated left eye hurt, MD said most likely allergy relate.
--- NOTE | 2021-10-29 15:20 | NUR ---
patient discharged. All wounds were cleaned with new dressings applied. Patient to pick antibiotics up from michael adam.
== END 2021-10-29 15:21 | disposition home or self-care (01) | DRG 194 ==
LOC: ER 17:06 → ED HOLD 23:15 → PCU 3S 10-23 00:45
PROVIDERS: ADMIT Family Medicine; ATTEND Family Medicine
DX: I13.0 Hypertensive heart and chronic kidney disease with heart failure and stage 1 through stage 4 chronic kidney disease, or unspecified chronic kidney disease (principal); K76.1 Chronic passive congestion of liver; L03.316 Cellulitis of umbilicus; N18.4 Chronic kidney disease, stage 4 (severe); Z79.01 Long term (current) use of anticoagulants; Z68.43 Body mass index [BMI] 50.0-59.9, adult; E66.01 Morbid (severe) obesity due to excess calories; E78.5 Hyperlipidemia, unspecified; I50.23 Acute on chronic systolic (congestive) heart failure; Z60.2 Problems related to living alone; F10.20 Alcohol dependence, uncomplicated; G47.33 Obstructive sleep apnea (adult) (pediatric); R74.01 Elevation of levels of liver transaminase levels; F12.90 Cannabis use, unspecified, uncomplicated; F15.90 Other stimulant use, unspecified, uncomplicated; I25.10 Atherosclerotic heart disease of native coronary artery without angina pectoris; I48.0 Paroxysmal atrial fibrillation; K43.9 Ventral hernia without obstruction or gangrene; F17.220 Nicotine dependence, chewing tobacco, uncomplicated; K57.30 Diverticulosis of large intestine without perforation or abscess without bleeding; L03.114 Cellulitis of left upper limb; Z79.899 Other long term (current) drug therapy; Z82.49 Family history of ischemic heart disease and other diseases of the circulatory system; I25.2 Old myocardial infarction; Z83.3 Family history of diabetes mellitus; Z90.49 Acquired absence of other specified parts of digestive tract
CPT/HCPCS: 36415; 71045; 74176; 80048; 80053; 82948; 83605; 83690; 83735; 83880; 84100; 84132; 84145; 84484; 85025; 85610; 87040; 87081; 93005; 93306; 94760; 96374; 97116; 97161; 97530; 99285; G0378; J0360; J1940; J2270

== ENCOUNTER 2021-11-20 07:34 | Inpatient (IN) | payer MEDICAID ==
[~2021-11-20] VITALS: Ht 177.8 cm; Wt 169.0 kg
[~2021-11-20 07:34] MED LIST changes: +AMOX-580 PO; -ASPI-1397 PO; -DILT-88 PO; -METO200T49 PO; -NALT50TA PO; -NICO-687 TD; -SPIR25TA5 PO; +[UNRECOGNIZED DRUG - CODE] PO
[2021-11-20 08:16] LABS: BASOPHILS # (AUTO) 0.1 X10'3 (0-0.2); BASOPHILS % (AUTO) 0.7 % (0-1); EOSINOPHILS % (AUTO) 0.6 % (0-6); HEMATOCRIT 37.3 % (42.0-52.0); LYMPHOCYTES # (AUTO) 0.9 X10'3 (1.1-4.8); LYMPHOCYTES % (AUTO) 13.4 % (21-51); MEAN CORPUSCULAR HEMOGLOBIN 27.9 PG (27.0-31.0); MEAN CORPUSCULAR HGB CONC 32.1 g/dL (33.0-36.5); MEAN CORPUSCULAR VOLUME 86.8 FL (78-98); MEAN PLATELET VOLUME 8.1 FL (7.4-10.4); MONOCYTES # (AUTO) 0.5 X10'3 (0-0.9); MONOCYTES % (AUTO) 7.8 % (2-12); NEUTROPHILS # (AUTO) 5.3 X10'3 (1.8-7.7); NEUTROPHILS % (AUTO) 77.5 % (42-75); PLATELET COUNT 255 X10'3 (140-440); WHITE BLOOD COUNT 6.9 X10'3 (4.5-11.0)
[2021-11-20 08:17] LABS: ANION GAP 11 (8-16); BILIRUBIN,TOTAL 0.7 MG/DL (0.1-1.0); BLOOD UREA NITROGEN 31 MG/DL (7-18); BUN/CREATININE RATIO 14.8 (5.4-32.0); CALCIUM 8.5 MG/DL (8.5-10.1); CHLORIDE 103 MMOL/L (99-107); GLUCOSE 172 MG/DL (70-104); SODIUM 142 MMOL/L (135-145); TOTAL CARBON DIOXIDE 27.7 MMOL/L (24-32); TOTAL PROTEIN 6.8 G/DL (6.4-8.2); eGFR 34 ML/MIN
[2021-11-20 08:18] LABS: ALANINE AMINOTRANSFERASE 27 U/L (12-78); ALBUMIN 3.1 G/DL (3.4-5.0); ALBUMIN/GLOBULIN RATIO 0.8 (1.1-1.5); ALKALINE PHOSPHATASE 57 IU/L (46-116)
[2021-11-20 08:22] LABS: ASPARTATE AMINO TRANSFERASE 32 U/L (10-37); POTASSIUM 4.2 MMOL/L (3.5-5.1)
[2021-11-20 08:27] LABS: APTT 28 SECONDS (22-32)
[2021-11-20 09:05] LABS: ETHANOL < 0.010 GM/DL (0.0-0.010)
[2021-11-20] MEDS ORDERED: metoprolol succinate 25mg (24-HOUR) SR. Tablet PO STA (09:39)
[2021-11-20] MEDS ORDERED: furosemide 10 MG/1 ML 10ml inj IV ONE ×2 (09:55→11:05)
[2021-11-20] MEDS ORDERED: acetaminophen 325mg tablet PO ONE (11:00)
[2021-11-20 11:02] LABS: URINE AMPHETAMINE SCREEN NEGATIVE (Neg); URINE BARBITUATE SCREEN NEGATIVE (Neg); URINE BENZODIAZEPINES SCREEN NEGATIVE (Neg); URINE CANNABINOID SCREEN NEGATIVE (Neg); URINE COCAINE SCREEN NEGATIVE (Neg); URINE METHADONE SCREEN NEGATIVE (Neg); URINE OPIATE SCREEN NEGATIVE (Neg); URINE PHENCYCLIDINE SCREEN NEGATIVE (Neg)
[2021-11-20] MEDS ORDERED: nitroGLYCERIN 0.4mg/hour patch TD ONE (11:05)
[2021-11-20] MEDS ORDERED: magnesium 4gm in 100ml NS 100 ML IV PRN (12:40)
[2021-11-20] MEDS ORDERED: haloperidol 5mg tablet PO PRN (12:40)
[2021-11-20] MEDS ORDERED: magnesium hydroxide 30ml (MOM) UD suspension PO PRN (12:40)
[2021-11-20] MEDS ORDERED: ondansetron 4mg rapidly disintigrating tab PO PRN (12:40)
[2021-11-20] MEDS ORDERED: morphine 2 MG/ML inj. syringe IV PRN (12:40)
[2021-11-20] MEDS ORDERED: haloperidol lactate 5mg/ml inj IM PRN (12:40)
[2021-11-20] MEDS ORDERED: LORazepam 1 MG tablet PO PRN (12:40)
[2021-11-20] MEDS ORDERED: magnesium Cl slow-release 64mg tablet PO PRN (12:40)
[2021-11-20] MEDS ORDERED: LORazepam 2 mg/ml vial IV PRN (12:40)
[2021-11-20] MEDS ORDERED: bisacodyl 10mg suppository rectal RC PRN (12:40)
[2021-11-20] MEDS ORDERED: HYDROcodone/acetaminophen 5mg/325mg tablet PO PRN (12:40)
[2021-11-20] MEDS ORDERED: ondansetron/PF 4mg/2ml inj IV PRN (12:40)
[2021-11-20] MEDS ORDERED: acetaminophen 325mg tablet PO PRN ×2 (12:40)
[2021-11-20] MEDS ORDERED: mag hydrox/Alum hydrox/simeth 30ml oral suspension PO PRN (12:40)
[2021-11-20] MEDS ORDERED: potassium Cl 20 mEq SR tablet PO PRN ×2 (12:40)
[2021-11-20] MEDS ORDERED: potassium CL 10mEq/100ml bag 100 ML IV PRN (12:40)
[2021-11-20] MEDS ORDERED: magnesium 2GM in 50ml NS 50 ML IV PRN (12:40)
--- NOTE | 2021-11-20 13:19 | NUR ---
US TECH AT BEDSIDE.
[2021-11-20 13:54] LABS: MAGNESIUM 1.9 MG/DL (1.5-2.4)
[2021-11-20 14:20] VITALS: BP 178/113
[2021-11-20] MEDS: morphine 2 MG/ML inj. syringe IV PRN ×3 (14:45→23:28)
[2021-11-20 15:00] VITALS: BP 167/115
[2021-11-20] MEDS ORDERED: LISI-642 PO (15:39)
[2021-11-20] MEDS ORDERED: CLON0.1T PO (15:39)
[2021-11-20 18:00] VITALS: BP 164/112
--- NOTE | 2021-11-20 18:31 | NUR ---
Patient in room PCU 3023. I have received report from AWAIS CUELLAR and had the opportunity to ask questions and assume patient care.
[2021-11-20] MEDS: apixaban 5mg tablet PO SCH (19:26)
[2021-11-20] MEDS: docusate sod 100mg capsule PO SCH (19:26)
[2021-11-20] MEDS: K and/or MAG REPLACEMENT MC SCH (19:30)
[2021-11-20] MEDS ORDERED: heparin, porcine 5000 units/ml vial SQ SCH (20:00)
[2021-11-20] MEDS ORDERED: furosemide 40mg tablet PO SCH (20:00)
[2021-11-20] MEDS: furosemide 40mg/4ml inj IV SCH (20:00)
[2021-11-20] MEDS: cloNIDine 0.1 mg tablet PO SCH (21:00)
[2021-11-20] MEDS: hydrALAZINE 25 MG tablet PO SCH (21:01)
[2021-11-20] MEDS: temazepam 15mg capsule PO PRN (21:03)
[2021-11-20 22:00] VITALS: BP 160/103
[2021-11-21] VITALS (8 sets, daily range): BP systolic 132–165; BP diastolic 68–104
[2021-11-21] MEDS: morphine 2 MG/ML inj. syringe IV PRN ×5 (04:19→20:06)
[2021-11-21 05:23] LABS: BASOPHILS # (AUTO) 0.1 X10'3 (0-0.2); EOSINOPHILS % (AUTO) 0.6 % (0-6); HEMATOCRIT 36.8 % (42.0-52.0); HEMOGLOBIN 11.9 g/dl (14.0-17.9); LYMPHOCYTES # (AUTO) 1.2 X10'3 (1.1-4.8); MEAN CORPUSCULAR HEMOGLOBIN 28.6 PG (27.0-31.0); MEAN CORPUSCULAR HGB CONC 32.4 g/dL (33.0-36.5); MEAN CORPUSCULAR VOLUME 88.4 FL (78-98); MONOCYTES # (AUTO) 0.6 X10'3 (0-0.9); MONOCYTES % (AUTO) 8.3 % (2-12); NEUTROPHILS # (AUTO) 5.2 X10'3 (1.8-7.7); NEUTROPHILS % (AUTO) 73.1 % (42-75); PLATELET COUNT 247 X10'3 (140-440); RED BLOOD COUNT 4.17 X10'6 (4.70-6.10); RED CELL DISTRIBUTION WIDTH 17.6 % (11.5-14.5); WHITE BLOOD COUNT 7.1 X10'3 (4.5-11.0)
[2021-11-21 05:43] LABS: ALANINE AMINOTRANSFERASE 26 U/L (12-78); ALBUMIN 3.1 G/DL (3.4-5.0); ALBUMIN/GLOBULIN RATIO 0.9 (1.1-1.5); ALKALINE PHOSPHATASE 53 IU/L (46-116); ANION GAP 9 (8-16); ASPARTATE AMINO TRANSFERASE 23 U/L (10-37); BILIRUBIN,TOTAL 0.8 MG/DL (0.1-1.0); BLOOD UREA NITROGEN 35 MG/DL (7-18); BUN/CREATININE RATIO 14.5 (5.4-32.0); CALCIUM 8.7 MG/DL (8.5-10.1); CHLORIDE 103 MMOL/L (99-107); CREATININE 2.42 MG/DL (0.60-1.10); GLUCOSE 130 MG/DL (70-104); MAGNESIUM 1.8 MG/DL (1.5-2.4); POTASSIUM 3.6 MMOL/L (3.5-5.1); SODIUM 141 MMOL/L (135-145); TOTAL CARBON DIOXIDE 28.6 MMOL/L (24-32); TOTAL PROTEIN 6.6 G/DL (6.4-8.2); eGFR 29 ML/MIN
[2021-11-21] MEDS ORDERED: METOPROLOL SUCCINATE PO SCH (08:00)
[2021-11-21] MEDS: K and/or MAG REPLACEMENT MC SCH ×2 (08:00→20:00)
[2021-11-21] MEDS ORDERED: lisinopril 5mg tablet PO SCH (08:00)
[2021-11-21] MEDS: allopurinol 100mg tablet PO SCH (09:28)
[2021-11-21] MEDS: cloNIDine 0.1 mg tablet PO SCH ×3 (09:28→21:11)
[2021-11-21] MEDS: amiodarone 200mg tablet PO SCH (09:29)
[2021-11-21] MEDS: docusate sod 100mg capsule PO SCH ×2 (09:29→21:11)
[2021-11-21] MEDS: multivitamins, therapeutics tablet PO SCH (09:29)
[2021-11-21] MEDS: apixaban 5mg tablet PO SCH ×2 (09:29→20:00)
[2021-11-21] MEDS: fenofibrate 145mg tablet PO SCH (09:29)
[2021-11-21] MEDS: furosemide 40mg/4ml inj IV SCH ×2 (10:14→21:09)
[2021-11-21] MEDS: hydrALAZINE 25 MG tablet PO SCH ×3 (10:14→21:11)
[2021-11-21] MEDS: folic acid 1mg/0.2ml inj IV SCH (10:14)
--- NOTE | 2021-11-21 13:04 | NUR ---
WOUND INFECTION EDUCATION PROVIDED BY WOUND CARE 1. Patient instructed to call their primary doctor, or go the ED immediately if any of the following symptoms occur: * Increased pain in wound * Increase in drainage from the wound * Redness in the skin surrounding the wound * Warmth in the skin surrounding the wound * Bleeding from the wound * Temperature of 101 or greater 2. If any of these occur while in the hospital tell a nurse immediately. PRESSURE ULCER EDUCATION: DEFINITION: A pressure ulcer is an area of skin that breaks down when you stay in one position too long. The constant pressure against the skin reduces the blood flow to that area and the affected tissue dies. CAUSES: "Being bedridden or in a wheelchair "Fragile skin "Having a chronic condition, such as diabetes or vascular disease "Inability to move certain parts of your body without assistance "Older age "Incontinence of urine or stool SYMPTOMS: "A reddened area that DOES NOT turn white when pressed on - this can be the beginning of a pressure ulcer "A blister, deep sore or a crater - these can be advanced pressure ulcers FIRST AID: "Relieve the pressure on this area "Keep the area clean and dry "Call your primary doctor if you see any of the above symptoms "DO NOT massage the area "DO NOT use a donut shaped or ring shaped pillow- these actually interfere with the blood flow and cause complications PREVENTION: "Check for pressure ulcers everyday "Change position at least every two hours to relieve pressure "Use items that help relieve pressure- pillows, sheepskin, foam padding, and powders. "Keep skin clean and dry "Eat healthy well balanced meals "Exercise daily IF YOU SEE ANY OF THESE SYMPTOMS WHILE IN THE HOSPITAL - TELL YOUR NURSE IMMEDIATELY. IF YOU SEE ANY OF THESE SYMPTOMS WHILE AT HOME OR HAVE ANY QUESTIONS OR CONCERNS ABOUT PRESSURE ULCERS - CALL YOUR PRIMARY DOCTOR IMMEDIATELY. Addendum: 11/21/21 at 1304 by Beatrice Hodges LVN Amended: Links added.
[2021-11-21] MEDS: metoprolol succinate 25mg (24-HOUR) SR. Tablet PO SCH (15:07)
--- NOTE | 2021-11-21 17:29 | NUR ---
pt a/ox4, independent in room. BP elevated throughout the day. BP meds given. Pt c/o 03/07 back pain, treating with 2mg Morphine IV q 4 hours. Pt following a 2L fluid restriction. Dressing to abd. changed per dealer support technician. Eating 100% of meals, tolerating well.
[2021-11-21] MEDS: temazepam 15mg capsule PO PRN (21:11)
[2021-11-22 02:00] VITALS: BP 117/69
[2021-11-22] MEDS: HYDROcodone/acetaminophen 10/325mg tab PO PRN ×2 (04:44→11:11)
[2021-11-22 06:00] VITALS: BP 123/80
--- NOTE | 2021-11-22 06:45 | NUR ---
Patient in room PCU 3020J. I have received report from POLO RUFF and had the opportunity to ask questions and assume patient care.
[2021-11-22 06:48] LABS: BASOPHILS # (AUTO) 0.1 X10'3 (0-0.2); BASOPHILS % (AUTO) 0.8 % (0-1); EOSINOPHILS # (AUTO) 0.1 X10'3 (0-0.9); EOSINOPHILS % (AUTO) 1.9 % (0-6); HEMATOCRIT 35.3 % (42.0-52.0); HEMOGLOBIN 11.4 g/dl (14.0-17.9); LYMPHOCYTES % (AUTO) 16.7 % (21-51); MEAN CORPUSCULAR HEMOGLOBIN 27.9 PG (27.0-31.0); MEAN CORPUSCULAR HGB CONC 32.3 g/dL (33.0-36.5); MEAN CORPUSCULAR VOLUME 86.4 FL (78-98); MEAN PLATELET VOLUME 8.4 FL (7.4-10.4); MONOCYTES # (AUTO) 0.6 X10'3 (0-0.9); MONOCYTES % (AUTO) 9.4 % (2-12); NEUTROPHILS # (AUTO) 4.4 X10'3 (1.8-7.7); NEUTROPHILS % (AUTO) 71.2 % (42-75); PLATELET COUNT 227 X10'3 (140-440); RED BLOOD COUNT 4.09 X10'6 (4.70-6.10); RED CELL DISTRIBUTION WIDTH 16.9 % (11.5-14.5); WHITE BLOOD COUNT 6.3 X10'3 (4.5-11.0)
[2021-11-22 06:57] LABS: ALANINE AMINOTRANSFERASE 28 U/L (12-78); ALBUMIN/GLOBULIN RATIO 0.9 (1.1-1.5); ALKALINE PHOSPHATASE 50 IU/L (46-116); ANION GAP 8 (8-16); ASPARTATE AMINO TRANSFERASE 27 U/L (10-37); BILIRUBIN,TOTAL 0.8 MG/DL (0.1-1.0); BLOOD UREA NITROGEN 42 MG/DL (7-18); BUN/CREATININE RATIO 16.8 (5.4-32.0); CALCIUM 8.8 MG/DL (8.5-10.1); CHLORIDE 102 MMOL/L (99-107); GLUCOSE 127 MG/DL (70-104); MAGNESIUM 1.9 MG/DL (1.5-2.4); POTASSIUM 3.2 MMOL/L (3.5-5.1); SODIUM 141 MMOL/L (135-145); TOTAL CARBON DIOXIDE 30.6 MMOL/L (24-32); TOTAL PROTEIN 6.5 G/DL (6.4-8.2); eGFR 28 ML/MIN
[2021-11-22] MEDS: metoprolol succinate 25mg (24-HOUR) SR. Tablet PO SCH (08:00)
[2021-11-22] MEDS: cloNIDine 0.1 mg tablet PO SCH ×3 (08:00→20:58)
[2021-11-22] MEDS: K and/or MAG REPLACEMENT MC SCH ×2 (08:00→20:42)
[2021-11-22] MEDS: furosemide 20 MG/2 ML vial IV SCH ×2 (08:00→19:47)
[2021-11-22] MEDS: hydrALAZINE 25 MG tablet PO SCH ×3 (08:00→21:00)
[2021-11-22 08:15] VITALS: BP 102/55
[2021-11-22] MEDS: folic acid 1mg/0.2ml inj IV SCH (08:17)
[2021-11-22] MEDS: docusate sod 100mg capsule PO SCH ×2 (08:18→19:46)
[2021-11-22] MEDS: amiodarone 200mg tablet PO SCH (08:18)
[2021-11-22] MEDS: apixaban 5mg tablet PO SCH ×2 (08:24→19:46)
[2021-11-22] MEDS: allopurinol 100mg tablet PO SCH (08:24)
[2021-11-22] MEDS: fenofibrate 145mg tablet PO SCH (08:24)
[2021-11-22] MEDS: multivitamins, therapeutics tablet PO SCH (08:25)
--- NOTE | 2021-11-22 08:33 | NUR ---
HELD PATIENT'S BP MEDS DUE TO LOW BP 102/55, DR TOVAR
[2021-11-22 11:00] VITALS: BP 143/67
[2021-11-22 15:00] VITALS: BP 116/62
[2021-11-22] MEDS: morphine 2 MG/ML inj. syringe IV PRN ×2 (16:37→22:05)
--- NOTE | 2021-11-22 17:00 | NUR ---
DID NOT GIVE 1300 BP MEDS, WAS UNABLE TOO AND DID NOT REALIZE MEDS WERE DUE UNTIL IT WAS TOO LATE TO GIVE
[2021-11-22 17:14] LABS: HEMOGLOBIN A1C 6.8 % (4.5-6.2)
[2021-11-22 17:22] LABS: CHOL/HDL RATIO 5.7 (0.00-4.99); CHOLESTEROL 143 MG/DL (0-200); HDL CHOLESTEROL 25 MG/DL (35-60); LDL CHOLESTEROL 92 MG/DL (50-100); TRIGLYCERIDES 186 MG/DL (20-135)
[2021-11-22] MEDS ORDERED: DEXTROSE 15 GM of carb/4 tabs (each vial/BOTTLE has 4 tablets) PO PRN ×2 (17:40)
[2021-11-22] MEDS ORDERED: dextrose 50%-water 50ml dispensing syringe IV PRN ×2 (17:40)
[2021-11-22] MEDS ORDERED: insulin Lispro (HumaLOG) vial - multi-dose SQ SCH (17:40)
[2021-11-22] MEDS ORDERED: glucagon, human recombinant 1mg kit SUBCUT PRN (17:40)
[2021-11-22 18:00] VITALS: BP 126/78
--- NOTE | 2021-11-22 18:15 | NUR ---
Problems reprioritized. Patient report given, questions answered & plan of care reviewed with POLO HUANG.
[2021-11-22] MEDS: insulin glargine (Lantus) pen - multi-dose SQ SCH (21:00)
[2021-11-22] MEDS: temazepam 15mg capsule PO PRN (22:04)
[2021-11-23] MEDS: morphine 2 MG/ML inj. syringe IV PRN ×2 (03:13→19:48)
[2021-11-23 06:00] VITALS: BP 143/63
[2021-11-23 06:30] LABS: EOSINOPHILS # (AUTO) 0.2 X10'3 (0-0.9); MONOCYTES # (AUTO) 0.5 X10'3 (0-0.9)
[2021-11-23 06:32] LABS: ALANINE AMINOTRANSFERASE 24 U/L (12-78); ALBUMIN 3.1 G/DL (3.4-5.0); ALBUMIN/GLOBULIN RATIO 0.8 (1.1-1.5); ALKALINE PHOSPHATASE 53 IU/L (46-116); ANION GAP 10 (8-16); ASPARTATE AMINO TRANSFERASE 25 U/L (10-37); BILIRUBIN,TOTAL 0.6 MG/DL (0.1-1.0); BLOOD UREA NITROGEN 44 MG/DL (7-18); BUN/CREATININE RATIO 16.7 (5.4-32.0); CALCIUM 8.7 MG/DL (8.5-10.1); CHLORIDE 100 MMOL/L (99-107); CREATININE 2.64 MG/DL (0.60-1.10); GLUCOSE 167 MG/DL (70-104); MAGNESIUM 2.1 MG/DL (1.5-2.4); SODIUM 139 MMOL/L (135-145); TOTAL CARBON DIOXIDE 29.2 MMOL/L (24-32); TOTAL PROTEIN 6.9 G/DL (6.4-8.2); eGFR 26 ML/MIN
[2021-11-23 06:33] LABS: BASOPHILS % (AUTO) 0.6 % (0-1); EOSINOPHILS % (AUTO) 2.8 % (0-6); HEMATOCRIT 36.6 % (42.0-52.0); LYMPHOCYTES % (AUTO) 15.1 % (21-51); MEAN CORPUSCULAR HEMOGLOBIN 28.3 PG (27.0-31.0); MEAN CORPUSCULAR HGB CONC 32.8 g/dL (33.0-36.5); MEAN CORPUSCULAR VOLUME 86.2 FL (78-98); MEAN PLATELET VOLUME 8.3 FL (7.4-10.4); MONOCYTES % (AUTO) 8.5 % (2-12); NEUTROPHILS # (AUTO) 4.6 X10'3 (1.8-7.7); PLATELET COUNT 226 X10'3 (140-440); POTASSIUM 3.7 MMOL/L (3.5-5.1); RED BLOOD COUNT 4.25 X10'6 (4.70-6.10); RED CELL DISTRIBUTION WIDTH 17.2 % (11.5-14.5); WHITE BLOOD COUNT 6.4 X10'3 (4.5-11.0)
[2021-11-23] MEDS: apixaban 5mg tablet PO SCH ×2 (08:00→19:12)
[2021-11-23] MEDS: folic acid 1mg/0.2ml inj IV SCH (08:00)
[2021-11-23] MEDS: hydrALAZINE 25 MG tablet PO SCH ×3 (08:00→21:00)
[2021-11-23] MEDS: cloNIDine 0.1 mg tablet PO SCH ×3 (08:00→21:00)
[2021-11-23] MEDS: amiodarone 200mg tablet PO SCH (08:00)
[2021-11-23] MEDS: furosemide 20 MG/2 ML vial IV SCH ×2 (08:00→19:13)
[2021-11-23] MEDS: multivitamins, therapeutics tablet PO SCH (08:00)
[2021-11-23] MEDS: docusate sod 100mg capsule PO SCH ×2 (08:00→19:12)
[2021-11-23] MEDS: fenofibrate 145mg tablet PO SCH (08:00)
[2021-11-23] MEDS: metoprolol succinate 25mg (24-HOUR) SR. Tablet PO SCH (08:00)
[2021-11-23] MEDS: K and/or MAG REPLACEMENT MC SCH ×2 (08:00→20:00)
[2021-11-23] MEDS: allopurinol 100mg tablet PO SCH (08:00)
[2021-11-23] MEDS: HYDROcodone/acetaminophen 10/325mg tab PO PRN ×3 (09:30→15:40)
--- NOTE | 2021-11-23 09:35 | NUR ---
Initial: Pt admitted w/ CHF, acute respiratory failure, and INES w/ CKD per EMR. Currently on Carb controlled diet; previously w/ 2L fluid restriction; consuming avg 90% of meals meeting est nutrient needs. Per [facility]OC, pt has large abd surgical incision w/ non healing wound. Pt may benefit from Cody smoothies to assist w/ wound healing. Noted pt w/ A1c 6.8 though no hx of DM in EMR. Pt would need official diagnosis by MD prior to RD education. [facility] 11/20 receiving routine colace. Will continue to monitor. Recs; 1. Continue Carb control diet as tolerated; A1c 6.8 2. Cody Smoothies BID; pending MD verification 3. Bowel care per rx 4. Weekly wts 5. Possible new DM this admit, A1c 6.8 w/ no prior hx in EMR. Would require DM dx by physician prior to RD visit for ed Addendum: 11/23/21 at [address] Amended: Links added.
[2021-11-23 11:00] VITALS: BP 138/57
--- NOTE | 2021-11-23 12:06 | NUR ---
Diabetes consult: New onset DM per physician, A1c 6.8. Provided pt w/ written and verbal DM ed w/ RD contact info. Addendum: 11/23/21 at [address] Amended: Links added.
--- NOTE | 2021-11-23 13:01 | NUR ---
WOUND INFECTION EDUCATION PROVIDED BY WOUND CARE 1. Patient instructed to call their primary doctor, or go the ED immediately if any of the following symptoms occur: * Increased pain in wound * Increase in drainage from the wound * Redness in the skin surrounding the wound * Warmth in the skin surrounding the wound * Bleeding from the wound * Temperature of 101 or greater 2. If any of these occur while in the hospital tell a nurse immediately. Addendum: 11/23/21 at 1301 by Beatrice Hodges LVN Amended: Links added.
[2021-11-23 15:00] VITALS: BP 94/43
[2021-11-23] MEDS ORDERED: JUVEN Smoothie Arginine/Glut./Ca2+Bmb (Juven 19.3pkt) 240ml cup PO SCH (17:30)
[2021-11-23 18:00] VITALS: BP 102/43
[2021-11-23] MEDS: insulin glargine (Lantus) pen - multi-dose SQ SCH (21:00)
--- NOTE | 2021-11-23 22:50 | NUR ---
PAGER ID: [phone] MESSAGE: For pt in 1980Q Karan Smith. His K/Mag replacement protocol fell off the EMAR this am. Can we please reorder it? POLO Schuler #[id number]
[2021-11-23] MEDS ORDERED: potassium Cl 20 mEq SR tablet PO PRN (23:00)
[2021-11-23] MEDS ORDERED: potassium Cl 40MEQ/1/2NS 520ml 520 ML IV PRN (23:00)
[2021-11-23] MEDS ORDERED: potassium CL 10mEq/100ml bag 100 ML IV PRN (23:20)
[2021-11-24] VITALS (7 sets, daily range): BP systolic 100–157; BP diastolic 47–90
[2021-11-24] MEDS: morphine 2 MG/ML inj. syringe IV PRN ×4 (01:49→23:59)
[2021-11-24] MEDS: temazepam 15mg capsule PO PRN ×2 (01:49→22:02)
--- NOTE | 2021-11-24 06:26 | NUR ---
Change of shift report given to POLO Reyes Pt stable. No acute complaints
[2021-11-24 06:54] LABS: BASOPHILS % (AUTO) 0.7 % (0-1); EOSINOPHILS # (AUTO) 0.2 X10'3 (0-0.9); EOSINOPHILS % (AUTO) 2.8 % (0-6); HEMATOCRIT 35.2 % (42.0-52.0); HEMOGLOBIN 11.4 g/dl (14.0-17.9); LYMPHOCYTES % (AUTO) 16.4 % (21-51); MEAN CORPUSCULAR HEMOGLOBIN 28.3 PG (27.0-31.0); MEAN CORPUSCULAR HGB CONC 32.4 g/dL (33.0-36.5); MEAN CORPUSCULAR VOLUME 87.2 FL (78-98); MEAN PLATELET VOLUME 8.3 FL (7.4-10.4); MONOCYTES # (AUTO) 0.6 X10'3 (0-0.9); MONOCYTES % (AUTO) 9.8 % (2-12); NEUTROPHILS # (AUTO) 4.2 X10'3 (1.8-7.7); NEUTROPHILS % (AUTO) 70.3 % (42-75); PLATELET COUNT 222 X10'3 (140-440); RED BLOOD COUNT 4.04 X10'6 (4.70-6.10); RED CELL DISTRIBUTION WIDTH 16.7 % (11.5-14.5)
[2021-11-24 07:07] LABS: ALANINE AMINOTRANSFERASE 25 U/L (12-78); ALBUMIN 3.1 G/DL (3.4-5.0); ALBUMIN/GLOBULIN RATIO 0.9 (1.1-1.5); ALKALINE PHOSPHATASE 59 IU/L (46-116); ANION GAP 7 (8-16); ASPARTATE AMINO TRANSFERASE 17 U/L (10-37); BILIRUBIN,TOTAL 0.5 MG/DL (0.1-1.0); BLOOD UREA NITROGEN 49 MG/DL (7-18); BUN/CREATININE RATIO 18.3 (5.4-32.0); CALCIUM 8.6 MG/DL (8.5-10.1); CHLORIDE 100 MMOL/L (99-107); CREATININE 2.68 MG/DL (0.60-1.10); GLUCOSE 109 MG/DL (70-104); MAGNESIUM 2.1 MG/DL (1.5-2.4); POTASSIUM 4.3 MMOL/L (3.5-5.1); SODIUM 137 MMOL/L (135-145); TOTAL CARBON DIOXIDE 30.1 MMOL/L (24-32); TOTAL PROTEIN 6.6 G/DL (6.4-8.2); eGFR 26 ML/MIN
[2021-11-24] MEDS: K and/or MAG REPLACEMENT MC SCH ×2 (07:30→20:00)
[2021-11-24] MEDS: furosemide 20 MG/2 ML vial IV SCH (07:55)
[2021-11-24] MEDS: hydrALAZINE 25 MG tablet PO SCH (07:56)
[2021-11-24] MEDS: multivitamins, therapeutics tablet PO SCH (07:57)
[2021-11-24] MEDS: levoTHYROXINE 25mcg tablet PO SCH (07:57)
[2021-11-24] MEDS: metoprolol succinate 25mg (24-HOUR) SR. Tablet PO SCH (07:58)
[2021-11-24] MEDS: atorvastatin 20mg tablet PO SCH (07:59)
[2021-11-24] MEDS: allopurinol 100mg tablet PO SCH (07:59)
[2021-11-24] MEDS: fenofibrate 145mg tablet PO SCH (08:00)
[2021-11-24] MEDS: amiodarone 200mg tablet PO SCH (08:01)
[2021-11-24] MEDS: apixaban 5mg tablet PO SCH ×2 (08:01→21:03)
[2021-11-24] MEDS: docusate sod 100mg capsule PO SCH ×2 (08:01→21:01)
[2021-11-24] MEDS: cloNIDine 0.1 mg tablet PO SCH ×3 (08:02→21:03)
[2021-11-24] MEDS ORDERED: glipizide 5mg tablet PO SCH (18:10)
[2021-11-24] MEDS: insulin glargine (Lantus) pen - multi-dose SQ SCH (21:00)
[2021-11-24] MEDS: HYDROcodone/acetaminophen 10/325mg tab PO PRN (21:04)
[2021-11-24] MEDS: furosemide 40mg tablet PO SCH (21:05)
[2021-11-25 02:00] VITALS: BP 127/79
[2021-11-25 06:00] VITALS: BP 155/100
[2021-11-25 07:10] LABS: BASOPHILS % (AUTO) 0.6 % (0-1); EOSINOPHILS # (AUTO) 0.2 X10'3 (0-0.9); EOSINOPHILS % (AUTO) 2.6 % (0-6); HEMATOCRIT 36.3 % (42.0-52.0); HEMOGLOBIN 11.7 g/dl (14.0-17.9); LYMPHOCYTES # (AUTO) 1.4 X10'3 (1.1-4.8); LYMPHOCYTES % (AUTO) 22.9 % (21-51); MEAN CORPUSCULAR HEMOGLOBIN 28.2 PG (27.0-31.0); MEAN CORPUSCULAR HGB CONC 32.4 g/dL (33.0-36.5); MEAN CORPUSCULAR VOLUME 87.2 FL (78-98); MEAN PLATELET VOLUME 8.1 FL (7.4-10.4); MONOCYTES # (AUTO) 0.6 X10'3 (0-0.9); MONOCYTES % (AUTO) 10.2 % (2-12); NEUTROPHILS # (AUTO) 3.8 X10'3 (1.8-7.7); NEUTROPHILS % (AUTO) 63.7 % (42-75); PLATELET COUNT 211 X10'3 (140-440); RED BLOOD COUNT 4.16 X10'6 (4.70-6.10); RED CELL DISTRIBUTION WIDTH 17.4 % (11.5-14.5)
[2021-11-25 07:27] LABS: ALANINE AMINOTRANSFERASE 27 U/L (12-78); ALBUMIN 3.3 G/DL (3.4-5.0); ALBUMIN/GLOBULIN RATIO 0.9 (1.1-1.5); ALKALINE PHOSPHATASE 52 IU/L (46-116); ANION GAP 9 (8-16); ASPARTATE AMINO TRANSFERASE 17 U/L (10-37); BILIRUBIN,TOTAL 0.7 MG/DL (0.1-1.0); BLOOD UREA NITROGEN 46 MG/DL (7-18); CALCIUM 8.8 MG/DL (8.5-10.1); CHLORIDE 101 MMOL/L (99-107); CREATININE 2.55 MG/DL (0.60-1.10); GLUCOSE 124 MG/DL (70-104); POTASSIUM 4.3 MMOL/L (3.5-5.1); SODIUM 139 MMOL/L (135-145); TOTAL CARBON DIOXIDE 29.2 MMOL/L (24-32); TOTAL PROTEIN 6.9 G/DL (6.4-8.2); eGFR 27 ML/MIN
[2021-11-25] MEDS ORDERED: folic acid 1mg tablet PO SCH (08:00)
[2021-11-25] MEDS: K and/or MAG REPLACEMENT MC SCH (08:00)
[2021-11-25] MEDS ORDERED: thiamine 100mg tablet PO SCH (08:00)
[2021-11-25] MEDS: apixaban 5mg tablet PO SCH (08:11)
[2021-11-25] MEDS: cloNIDine 0.1 mg tablet PO SCH (08:11)
[2021-11-25] MEDS: multivitamins, therapeutics tablet PO SCH (08:12)
[2021-11-25] MEDS: docusate sod 100mg capsule PO SCH (08:12)
[2021-11-25] MEDS: allopurinol 100mg tablet PO SCH (08:12)
[2021-11-25] MEDS: atorvastatin 20mg tablet PO SCH (08:12)
[2021-11-25] MEDS: fenofibrate 145mg tablet PO SCH (08:12)
[2021-11-25] MEDS: amiodarone 200mg tablet PO SCH (08:12)
[2021-11-25] MEDS: metoprolol succinate 25mg (24-HOUR) SR. Tablet PO SCH (08:12)
[2021-11-25] MEDS: furosemide 40mg tablet PO SCH (08:15)
[2021-11-25] MEDS: levoTHYROXINE 25mcg tablet PO SCH (08:19)
[2021-11-25] MEDS: HYDROcodone/acetaminophen 10/325mg tab PO PRN (08:23)
--- NOTE | 2021-11-25 08:41 | NUR ---
... Rx not due on my shift
[2021-11-25 11:00] VITALS: BP 148/96
[2021-11-25] MEDS ORDERED: GLYB2.5T4 PO (16:28)
== END 2021-11-25 12:41 | disposition home or self-care (01) | DRG 133 ==
LOC: ER 07:35 → ED HOLD 12:49 → PCU 3S 13:46
PROVIDERS: ADMIT Family Medicine; ATTEND Family Medicine
DX: J96.00 Acute respiratory failure, unspecified whether with hypoxia or hypercapnia (principal); N17.0 Acute kidney failure with tubular necrosis; I50.23 Acute on chronic systolic (congestive) heart failure; I13.0 Hypertensive heart and chronic kidney disease with heart failure and stage 1 through stage 4 chronic kidney disease, or unspecified chronic kidney disease; E11.22 Type 2 diabetes mellitus with diabetic chronic kidney disease; Z68.43 Body mass index [BMI] 50.0-59.9, adult; E66.01 Morbid (severe) obesity due to excess calories; E78.5 Hyperlipidemia, unspecified; E87.6 Hypokalemia; E11.65 Type 2 diabetes mellitus with hyperglycemia; Z60.2 Problems related to living alone; F12.90 Cannabis use, unspecified, uncomplicated; G47.33 Obstructive sleep apnea (adult) (pediatric); E03.9 Hypothyroidism, unspecified; R14.0 Abdominal distension (gaseous); I25.10 Atherosclerotic heart disease of native coronary artery without angina pectoris; I48.0 Paroxysmal atrial fibrillation; K46.9 Unspecified abdominal hernia without obstruction or gangrene; N18.4 Chronic kidney disease, stage 4 (severe); Z79.01 Long term (current) use of anticoagulants; Z79.84 Long term (current) use of oral hypoglycemic drugs; Z79.899 Other long term (current) drug therapy; Z82.49 Family history of ischemic heart disease and other diseases of the circulatory system; Z83.3 Family history of diabetes mellitus; Z87.891 Personal history of nicotine dependence; Z90.49 Acquired absence of other specified parts of digestive tract
CPT/HCPCS: 36415; 71045; 76705; 80053; 80061; 80305; 80320; 82948; 83036; 83735; 83880; 84439; 84443; 84484; 85025; 85610; 85730; 87081; 93005; 94760; 96374; 96375; 97116; 97161; 97530; 99285; G0378; J1815; J1940; J2270; J3490